=== PATIENT | female | born 1985 | race Caucasian/White ===

== ENCOUNTER 2018-01-27 10:38 | Emergency (ER) | payer OTHER, MEDICAID, SELFPAY ==
[2018-01-27 10:40] VITALS: BP 132/86; PULSE 80; RESP 16; TEMP 36.6; O2SAT 99; BMI 78.7
[2018-01-27] MEDS: Meclizine 12.5 MG Tablet 25 MG PO (11:17)
--- NOTE | 2018-01-27 11:20 | ED.VISSUMM ---
- ER Visit Summary Date of Service: 01/27/18 Chief Complaint: Dizziness History of Present Illness: The patient is a 32 F who presents with dizziness that has been getting worse over the past couple days. Patient went to urgent care today and was referred here to the emergency department. Patient states her dizziness feels like she is unsteady on her feet but also feels like there is a spinning sensation at times. Patient admits to some tinnitus. Patient also admits to a mild headache. Patient states she has had some recent sinus pressure and congestion. Patient states her dizziness is worse with movement and ambulation. Patient denies any paresthesias or weakness. Patient admits to some nausea but denies any vomiting. Physical Examination: Vital signs are stable. Patient is afebrile. Patient is in no acute distress. Oral mucosa is pink and moist. Pupils are equal, round, reactive to light bilaterally. Extraocular muscles are intact. There is some nystagmus noted with right lateral gaze. Cranial nerves II through XII are intact. Strength is 5/5 bilateral. There are no sensory deficits noted. Heart was regular rate and rhythm. Lungs are clear and equal bilaterally. Abdomen is soft and nontender. The remaining physical exam is within normal limits. Test Results: CBC basic metabolic profile were within normal limits. Emergency Department Course and Treatment: Patient was given a dose of meclizine here. Patient felt better after this. Patient was given a prescription for meclizine. Patient was instructed to follow-up with her primary care physician in 7-10 days. Patient understood and was agreeable with the plan. All questions were answered. Disposition: Discharged home Impression: Vertigo, upper respiratory infection This note was generated with [employer] dictation software. It may contain incorrect words, spelling, and punctuation that were not noted in review of the chart prior to signing ED Disposition - Plan for ED Patient: Disposition: Home or Assisted Living Chief Complaint: Dizziness Diagnosis: Vertigo, Upper respiratory infection, viral Instructions: ED Vertigo Unspecified Prescriptions: Meclizine HCl 25 mg PO Q8H PRN PRN #20 tab PRN Reason: Dizziness Referrals: Care Physician,No Primary [NON-STAFF] -
[2018-01-27 11:35] VITALS: BP 102/66; BP 106/74; BP 120/85; PULSE 61; PULSE 72; PULSE 80
[2018-01-27 11:49] LABS: Absolute Neutrophil Count 4.1 X10^3/uL (2.0-7.7); Basophil# 0.03 X10^3/uL; Basophil% 0.5 % (0-1); Eosinophil# 0.07 X10^3/uL; Eosinophils% 1.1 % (0-5); Hematocrit 44.7 % (37-47); Hemoglobin 14.9 g/dl (12.0-15.0); Lymphocyte % 26.8 % (19-41); Mean Corp Hgb Conc 33.3 g/gl (32-36); Mean Corpuscular Volume 87.1 fL (81-99); Mean Platelet Vol. 11.9 fl (6.2-12.0); Monocyte# 0.47 X10^3/uL; Monocyte% 7.4 % (0-10); Neutrophil # 4.06 X10^3/uL (2.7-7.7); POSITIVE COUNT NO; POSITIVE DIFFERENTIAL NO; POSITIVE MORPHOLOGY NO; Platelet Count 137 K/mm3 (150-450); RBC Distribution Width CV 12.5 % (11.6-14.6); RBC Distribution Width SD 40.2 fl (35.1-43.9); Red Blood Count 5.13 M/mm3 (4.2-5.4); White Blood Count 6.3 K/mm3 (4.4-11.0)
[2018-01-27 11:55] LABS: Anion Gap 5 (5-15); BUN 13 mg/dL (7-18); BUN/Creat Ratio 18.3 RATIO (10-20); Calcium,Total 8.6 mg/dL (8.5-10.1); Chloride 108 mmol/L (98-107); Creatinine, Serum 0.71 mg/dL (0.55-1.02); EST Glomerular Filtration Rate 100 mL/min (>60); Est Glom Filt Rate - Afr Amer 121 mL/min (>60); Estimated Creatinine Clearance 125.96 ml/min; Glucose 91 mg/dL (74-106); Potassium 4.8 mmol/L (3.5-5.1); Sodium Level 140 mmol/L (136-145)
--- NOTE | 2018-01-27 11:56 | ED.RN ---
PT REPORTED THAT ANTIVERT IS HELPING AND THE DIZZINESS IS SUBSIDING.
== END 2018-01-27 12:24 | disposition home or self-care (01) ==
PROVIDERS: Emergency Provider Emergency Medicine; Family Provider Nurse Practitioner Family; PCP Nurse Practitioner Family
DX: J06.9 Acute upper respiratory infection, unspecified (principal); R42 Dizziness and giddiness; Z72.0 Tobacco use
CPT/HCPCS: 36415; 80048; 85025; 99283

== ENCOUNTER 2018-12-10 15:10 | Emergency (ER) | payer OTHER, MEDICAID, SELFPAY ==
[2018-12-10 15:12] VITALS: BP 127/81; PULSE 64; RESP 17; TEMP 36.7; O2SAT 97; BMI 38.8
[2018-12-10 17:11] VITALS: RESP 16
--- NOTE | 2018-12-10 17:47 | ED.DCSUM_ITS ---
- ER Visit Summary Date of Service: 12/10/18 Chief Complaint: Right ear pain History of Present Illness: The patient is a 33 F worsening right ear pain over the past month. Saw a urgent care twice. Treated amoxicillin for sinusitis the first time a week ago was given eardrops. Symptoms not improving. Was told the ear drum was sucked in. She does admit to hearing loss. No injuries. No fevers. Never seen ears nose and throat. Physical Examination: General: Alert and oriented ?3, no acute distress HEENT: Normocephalic, atraumatic. Moist mucosa membranes. Tender palpation frontal and maxillary sinuses on the right. TMs normal bilaterally. No fluid behind the ears. Neck: supple, nontender. Cardiovascular: Regular rate and rhythm, no murmurs Respiratory: Normal breath sounds, symmetric, no distress Abdomen: Soft, nontender, nondistended Extremities: Nontender, no edema, pulses intact ?4 Neuro: no focal neurological deficits. Test Results: [] Emergency Department Course and Treatment: Patient vital signs stable, nontoxic. Reports hearing loss in the right. Normal eardrums. She does complain of continued sinus symptoms for the past month. She was placed on Augmentin, she is given follow-up with ENT as an outpatient. Treatment Plan: [] Disposition: Discharge Impression: 1. Sinusitis 2. Right hearing loss This note was generated with [employer] dictation software. It may contain incorrect words, spelling, and punctuation that were not noted in review of the chart prior to signing ED Disposition - Plan for ED Patient: Disposition: Home or Assisted Living Diagnosis: Sinusitis, Hearing loss, right Instructions: ED Sinusitis Abx Tx, Understanding Hearing Loss Prescriptions: Amox/Clavulanate Tablet [Augmentin Tablet] 875 mg PO Q12H #20 tablet Referrals: Radha Martinez NP-C [Primary Care Provider] - Saeid Mitchell MD [STAFF PHYSICIAN] - 5-7 Days
[2018-12-10 18:16] VITALS: RESP 16
[2018-12-10] MEDS: Amox/Clavulanate 875 MG Tablet PO (18:17)
== END 2018-12-10 18:20 | disposition home or self-care (01) ==
PROVIDERS: Emergency Provider Emergency Medicine; Family Provider Nurse Practitioner Family; PCP Nurse Practitioner Family
DX: J32.9 Chronic sinusitis, unspecified (principal); H91.91 Unspecified hearing loss, right ear; Z72.0 Tobacco use
CPT/HCPCS: 99283

== ENCOUNTER 2019-06-22 16:20 | Emergency (ER) | payer OTHER, MEDICAID, SELFPAY ==
[2019-06-22 16:21] VITALS: BP 124/68; PULSE 50; RESP 17; TEMP 36.7; O2SAT 96; BMI 37.0
--- NOTE | 2019-06-22 17:24 | ED.VISSUMM ---
- ER Visit Summary Date of Service: 06/22/19 Chief Complaint: Rash History of Present Illness: The patient is a 33 F who sees Briseida Martinez. She reports that approximately 1 week ago she took her goats into the [place] barefoot. States that the next day she developed rashes to both of her feet that was vesicular initially. It itches badly. Physical Examination: Vitals: Stable. Afebrile. General: Well-nourished and well-developed. Head: Normocephalic atraumatic. Neck: Supple, no lymphadenopathy. No JVD. Nontender. Cardiovascular: Regular rate and rhythm. No murmurs. Respiratory: No respiratory distress. Clear to auscultation bilaterally. Abdominal: Soft, nontender, nondistended, normal bowel sounds. No guarding, rebound, or peritoneal signs. Back: Nontender. Extremities: Multiple scabbed vesicular lesions to her feet bilaterally, back of the right knee, and medial left calf. These are consistent with poison monalisa. No surrounding erythema or induration to suggest infection. No edema. Skin: Normal color, no rash. Neurologic: Alert and oriented ?3. Cranial nerves II through XII are intact. Normal strength and sensation. Psych: Normal affect. Emergency Department Course and Treatment: Patient was treated with a dose of Kenalog IM. She is resting comfortably. Treatment Plan: Patient will be discharged instructions to follow-up with her primary care physician 1 week if not improving. Return to the emergency department for any worsening symptoms. Disposition: To home in improved and stable condition. Impression: 1. Poison monalisa dermatitis. This note was generated with [employer] software. It may contain incorrect words, spelling, and punctuation that were not noted in review of the chart prior to signing ED Disposition - Plan for ED Patient: Disposition: Home or Assisted Living Instructions: Poison Monalisa Dermatitis Referrals: Radha Martinez, PARKER-C [Primary Care Provider] - 1 Week if not improving
[2019-06-22] MEDS: Triamcinolone Acetonide 40 MG/ML Vial 80 MG IM (17:32)
[2019-06-22 17:37] VITALS: BP 121/86; PULSE 51; RESP 18
== END 2019-06-22 18:01 | disposition home or self-care (01) ==
LOC: ED 17:40
PROVIDERS: Emergency Provider Emergency Medicine; Family Provider Nurse Practitioner Family; PCP Nurse Practitioner Family
DX: L23.7 Allergic contact dermatitis due to plants, except food (principal); Z72.0 Tobacco use
CPT/HCPCS: 96372; 99283

== ENCOUNTER 2019-11-02 13:25 | Emergency (ER) | payer OTHER, MEDICAID, SELFPAY ==
[2019-11-02 13:26] VITALS: BP 135/90; PULSE 70; RESP 16; TEMP 36.4; O2SAT 97; BMI 36.9
[2019-11-02] MEDS: HYDROcodone Bitartrate/Apap 5/325 Tablet PO (14:05)
[2019-11-02] MEDS: Naproxen 500 MG Tablet PO (14:05)
--- NOTE | 2019-11-02 14:07 | RAD_ITS ---
STUDY: X-RAY - LUMBAR SPINE REASON FOR EXAM: Female, 33 years old. CHRONIC LOW BACK PAIN RECENTLY ACUTE S/P LIFTING HEAVY OBJECT TECHNIQUE: 3 view(s) of the lumbar spine were obtained. COMPARISON: 10/24/2014 FINDINGS: Normal lumbar lordosis. There is no substantial scoliosis. Spondylolisthesis of L5-S1 as increased since the prior study, currently measuring 9 mm (previously measured 5 mm). Bilateral L5 pars defects are identified. There is multilevel endplate spondylosis of the lumbar vertebrae. There is increasing disc space narrowing at L5-S1 since prior study. Other levels of disc space narrowing less severe. The soft tissue structures are unremarkable. RAD/Lumbar Spine 2 or 3 Views IMPRESSION: 1. Worsening degenerative disc disease and spondylolisthesis (grade 1-grade 2) since 2013. 2. No compression fracture. Electronically Signed: Domingo Robledo MD (Brooks) at 14:32 EST , Service support ,
--- NOTE | 2019-11-02 14:15 | ED.DCSUM_ITS ---
History of Present Illness Chief Complaint: Back Informant: Patient Onset: Days - Back pain for several days. Pain worse after traumatic injury. Context: Gradual Onset, Sudden Onset Timing: Continuous Quality: Pain Location: Lumbar Current Severity: Mild Maximum Severity: Severe Worsened by: Palpation and movement Relieved by: Remaining still Associated Symptoms: No associated symptoms Narrative: Patient is a 33-year-old woman who presents with back pain that started several days ago. Pain pain suddenly worse after blunt trauma. She states her dog jumped on her and she fell onto a pallet. She localizes pain to the lumbar region. Denies bowel bladder dysfunction. Denies saddle paresthesia or anesthesia. She denies foot drop. She denies thigh weakness or buckling of her knees going up or down steps. She denies radicular pain. She denies GI or symptoms. She denies fever, chills or night sweats. She states she is not immune suppressed. She denies IV drug use. Prior similar symptoms: No Recent Illness/Hospitalization: No - Past Medical History (1) No significant past medical history Status: Acute Past Medical History - Allergies and Home Meds Allergies/Adverse Reactions: Allergies No Known Allergies Allergy (Verified 11/02/19 13:26) Primary Care Physician: Radha Martinez NP-C [Primary Care Provider] - Prior records reviewed: Yes Surgical History: noncontributory Lives: Spouse/ Significant Other Smoking Status: Current every day smoker Alcohol: Rare Drugs: None Review of Systems General: Denies: Chills, Fever, Malaise, Sweats Eyes: Denies: Visual changes - bilaterally, Blurred Vision - bilaterally ENT: Denies: Rhinorrhea, Sore throat Cardiovascular: Denies: Chest pain, Palpitations Respiratory: Denies: Dyspnea, Cough, Dyspnea on exertion Gastrointestinal: Denies: Abdominal pain, Nausea, Vomiting, Diarrhea, Melena, Hematochezia Musculoskeletal: Reports: Back pain. Denies: Myalgias, Arthralgias, Neck pain, Swelling, Extremity Pain Skin: Denies: Rash, Wounds Neurological: Denies: Headache, Weakness, Parasthesia, Numbness Hematologic: Denies: Easy bruising, Easy bleeding Physical Exam Vital Signs/Narrative: Vital Signs Temp Pulse Resp BP Pulse Ox 11/02/19 13:26 97.5 F L 70 16 135/90 H 97 Inital Vital Signs reviewed: Yes General: Well nourished, Well developed, No Acute Distress Head: Normocephalic, Atraumatic Eyes: Perrl, EOMI ENT: Moist mucous membranes, No rhinorrhea Neck: Supple, Nontender, No lymphadenopathy, No JVD Cardiovascular: Regular rate, Regular rhythm, No murmurs, Normal S1, Normal S2 Respiratory: No distress, CTA bilaterally, Chest nontender. Negative for: Rales, Rhonchi Abdomen: Soft, Nontender, Nondistended, Normal bowel sounds Back: Normal Inspection, Spinal tenderness - Tenderness over L2-3.. Negative for: Nontender, CVA tenderness Extremities: Nontender, No edema Skin: Normal color, No rash Neurological: Alert, Oriented x3, Cranial nerves II-XII grossly intact, Normal Strength, Normal Sensation, Normal DTR, Normal Gait, - - Straight leg test and crossover test negative. Patella and ankle reflex are 2+ and symmetric. EHL is intact. Patient able to walk on heels and toes. Patient able to do a 1 legged squat right and left. Sensation is intact. Psychological: Normal affect, Normal Mood Diagnostic/Tx/Re-eval Chest X-Ray - ED: Read by ED Physician, - - View x-ray of the LS-spine was obtained. There is minimal arthritic changes noted at L5-S1. There is no fracture, subluxation or dislocation. 11/02/19 14:02 Lumbar Spine 2 or 3 Views [RAD] Stat - Medical Decision Making Because there is history of trauma x-ray was obtained. She was medicated with 500 mg of Naprosyn and one [place] tablet. Differential contusion versus fracture. ED Disposition - Plan for ED Patient: Disposition: Home or Assisted Living Diagnosis: Contusion of lower back and pelvis, initial encounter Instructions: CONTUSION, Back Prescriptions: Naproxen [Naprosyn] 500 mg PO BID #14 tab Transmission Status: Pending to [facility] Referrals: Radha Martinez NP-C [Primary Care Provider] - 1 Week if not improving
== END 2019-11-02 14:29 | disposition home or self-care (01) ==
LOC: ED 14:25
PROVIDERS: Emergency Provider Emergency Medicine; Family Provider Nurse Practitioner Family; PCP Nurse Practitioner Family
DX: S30.0XXA Contusion of lower back and pelvis, initial encounter (principal); W54.1XXA Struck by dog, initial encounter; Y93.9 Activity, unspecified; F17.200 Nicotine dependence, unspecified, uncomplicated
CPT/HCPCS: 72100; 99283

== ENCOUNTER 2019-12-09 09:50 | Emergency (ER) | payer OTHER, MEDICAID, SELFPAY ==
[2019-12-09 09:52] VITALS: BP 128/88; PULSE 68; RESP 16; TEMP 36.5; O2SAT 97; BMI 38.2
--- NOTE | 2019-12-09 10:03 | ED.VIS.GEN ---
History of Present Illness Chief Complaint: Nausea/Vomiting/Diarrhea Informant: Patient Onset: Days - Onset December 05 Context: Sudden Onset Timing: Continuous Quality: Bilateral abdominal pain with nausea, vomiting diarrhea Location: Pain bilaterally Current Severity: Mild Maximum Severity: Severe Worsened by: Vomiting and diarrhea Relieved by: Nothing Associated Symptoms: Thirst, dry mouth and orthostatic symptoms Narrative: She is a 34-year-old woman with history of posttraumatic stress disorder who presents with nausea, vomiting diarrhea that started December 05. She states that there is an outbreak at the [facility]. 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 She states there are 40 kids who have similar symptoms. She denies history of Crohn's disease ulcerative colitis. She denies hematemesis, melena medication. She denies mucus in her stool. She has not been on antibiotics in the past month. She has no known history of renal disease. She states the pain is bilateral. Is aching. She was prescribed Zofran which she discontinued because she is on Lexapro because of concern for QT prolongation. She is taking the Bentyl she was prescribed by the practitioner she saw at the urgent care. Prior similar symptoms: Yes Recent Illness/Hospitalization: Yes - Past Medical History (1) Posttraumatic stress disorder Status: Acute (2) Biliary colic Status: Acute Past Medical History - Allergies and Home Meds Allergies/Adverse Reactions: Allergies No Known Allergies Allergy (Verified 12/09/19 09:52) Primary Care Physician: Radha Martinez NP-C [Primary Care Provider] - Prior records reviewed: Yes Surgical History: noncontributory Lives: Alone Smoking Status: Current every day smoker Alcohol: Rare Drugs: None Review of Systems General: Reports: Malaise. Denies: Chills, Fever, Sweats Eyes: Denies: Visual changes - bilaterally, Blurred Vision - bilaterally ENT: Denies: Rhinorrhea, Sore throat Cardiovascular: Denies: Chest pain, Palpitations Respiratory: Denies: Dyspnea, Cough, Dyspnea on exertion Gastrointestinal: Reports: Abdominal pain, Nausea, Vomiting, Diarrhea. Denies: Constipation, Melena, Hematochezia Genitourinary: Reports: - - Decreased urine output. Denies: Dysuria, Hematuria, Frequency Musculoskeletal: Denies: Back pain, Extremity Pain Skin: Denies: Rash, Wounds Neurological: Denies: Headache, Weakness, Numbness Endocrine: Denies: Polyuria, Polydipsia Physical Exam Vital Signs/Narrative: Vital Signs Temp Pulse Resp BP Pulse Ox 12/09/19 09:52 97.7 F L 68 16 128/88 H 97 Inital Vital Signs reviewed: Yes General: Well nourished, Well developed, Obese, No Acute Distress, - - He does appear ill but not toxic. Head: Normocephalic, Atraumatic Eyes: Perrl, EOMI. Negative for: Pale conjunctiva, Scleral icterus ENT: No rhinorrhea, TM's clear, Dry mucous membranes Neck: Supple, Nontender, No lymphadenopathy, No JVD Cardiovascular: Regular rate, Regular rhythm, No murmurs, Normal S1, Normal S2 Respiratory: No distress, CTA bilaterally, Chest nontender Abdomen: Soft, Nondistended, Tender, Hypoactive bowel sounds. Negative for: Normal bowel sounds, Guarding, Rebound tenderness, Hepatomegaly, Splenomegaly, Mass, Pulsatile mass, Ventral hernia, Umbilical hernia Rectal: Deferred Back: Nontender, Normal Inspection. Negative for: CVA tenderness Extremities: Nontender, No edema Skin: Normal color, No rash, No Trauma. Negative for: Cyanosis, Diaphoresis, Jaundice Neurological: Alert, Oriented x3, Cranial nerves II-XII grossly intact, Normal Strength, Normal Sensation, Normal Gait Psychological: Depressed Diagnostic/Tx/Re-eval Laboratory Results 12/09/19 10:10 Sodium 140 Potassium 4.0 Chloride 109 H Carbon Dioxide 28.0 Anion Gap 3 L BUN 15 Creatinine 0.79 Estim Creat Clear Calc 111.09 Est GFR (MDRD) Af Amer 107 Est GFR (MDRD) Non-Af 88 BUN/Creatinine Ratio 19.0 Glucose 88 Calcium 8.8 - Medical Decision Making Clinically patient appears dehydrated. With history of nausea, vomiting diarrhea for 4+ days and orthostatic symptoms IV was established. She received normal saline wide open. She received 10 mg of Reglan for her nausea and vomiting. She will receive Imodium for the diarrhea. Basic metabolic panel was obtained to assess electrolytes specifically potassium as well as renal function. Informed the patient is having a dystonic reaction. She refuses Benadryl or Cogentin. She states she wants the IV pole. I personally went back to the room. Patient was informed that her symptoms can easily be treated. She states she would like to go home. She wants the IV pole. She was informed that her symptoms may last for 6 to 12 hours. She still does not want to be treated with Benadryl or Cogentin. She requests to go home. ED Disposition - Plan for ED Patient: Disposition: Home or Assisted Living Diagnosis: Abdominal pain, vomiting, and diarrhea, Dehydration Instructions: VOMITING AND DIARRHEA, Nonspecific (Adult) Referrals: Radha Martinez, PLASTIC SURGERY NURSE-C [Primary Care Provider] - 1-2 Days if not improving
[2019-12-09] MEDS: Metoclopramide 10 MG/2 ML Vial IV (10:15)
[2019-12-09] MEDS: 0.9% Normal Saline 1,000 ML 1000 ML IV (10:15)
[2019-12-09 10:31] LABS: Anion Gap 3 (5-15); BUN 15 mg/dL (7-18); Calcium,Total 8.8 mg/dL (8.5-10.1); Chloride 109 mmol/L (98-107); Creatinine, Serum 0.79 mg/dL (0.55-1.02); EST Glomerular Filtration Rate 88 mL/min (>60); Est Glom Filt Rate - Afr Amer 107 mL/min (>60); Estimated Creatinine Clearance 111.09 ml/min; Glucose 88 mg/dL (74-106); Sodium Level 140 mmol/L (136-145)
--- NOTE | 2019-12-09 10:32 | ED.RN ---
RN TO BEDSIDE FOR CALL LIGHT. PATIENT STATES THE IV FLUIDS OF NORMAL SALINE ARE MAKING HER ARM ITCH AND SHE WANTS IT OUT. RN STATES THIS IS A REACTION TO THE REGLAN & RN WILL GET ORDER FROM DR. MCCULLOUGH FOR BENADRYL. RN RETURNS TO ROOM TO INFORM PATIENT OF NEW ORDER. PT STATES I DON'T WANT IT I JUST WANT MY IV OUT AND TO GO HOME. DR. MCCULLOUGH TO BEDSIDE AT THIS TIME TO INFORM PATIENT THAT SIDE EFFECT CAN LAST SEVERAL HOURS & BENADRYL WILL HELP DECREASE IT. PT STILL INSISTING ON REMOVING IV AND GOING HOME. RN REMOVED IV & INFORMED PATIENT WILL RETURN WITH D/C PAPERWORK.
== END 2019-12-09 10:40 | disposition home or self-care (01) ==
PROVIDERS: Emergency Provider Emergency Medicine; PCP Nurse Practitioner Family
DX: R11.2 Nausea with vomiting, unspecified (principal); R10.9 Unspecified abdominal pain; R19.7 Diarrhea, unspecified; E86.0 Dehydration; F17.200 Nicotine dependence, unspecified, uncomplicated
CPT/HCPCS: 80048; 96374; 99283; J7030

== ENCOUNTER 2020-04-06 13:55 | Emergency (ER) | payer OTHER, MEDICAID, SELFPAY ==
[2020-04-06 13:56] VITALS: BP 131/84; PULSE 76; RESP 18; TEMP 36.6; O2SAT 97; BMI 40.1
[2020-04-06 13:59] VITALS: BP 131/84; PULSE 76; RESP 18; TEMP 36.6; O2SAT 97
--- NOTE | 2020-04-06 14:34 | RAD_ITS ---
STUDY: X-RAY - LEFT HAND REASON FOR EXAM: Female, 34 years old. Redness and swelling -- rooster puncture on top of hand, happened 04-04-20 TECHNIQUE: 3 view(s) of the hand. COMPARISON: None. FINDINGS: Normal radiocarpal articulation. Normal distal radioulnar joint. Normal visualized carpal bones. Normal carpal articulations Normal carpometacarpal articulation of the thumb. Normal second through fifth carpometacarpal joints. Normal metacarpi. Normal metacarpophalangeal joint of the thumb. Normal interphalangeal joint of the thumb. Normal proximal and distal phalanges of the thumb. Normal metacarpophalangeal joints of the second through fifth fingers. Normal proximal and distal interphalangeal joints of the second through fifth fingers. Normal phalanges of the second through fifth fingers. Diffuse soft tissue swelling. RAD/Hand Min 3 Views IMPRESSION: Diffuse soft tissue swelling. Electronically Signed: John Coyle, at 15:16 EDT , Service support ,
[2020-04-06] MEDS: Diphth,Pertuss(Acell),Tet Vac 0.5 ML Vial IM (14:56)
--- NOTE | 2020-04-06 16:38 | ED.VIS.UPPEX ---
History of Present Illness Chief Complaint: Cellulitis Narrative: Patient presenting for evaluation secondary to a left hand infection. Patient reports that she was spurred in the left hand by her rooster on Monday. Patient reports that over the course of the last 2 days she has had development of spreading redness and swelling and some pain in the area. She denies any constitutional symptoms such as fever, but she does report that the pain somewhat radiates up to the level of her elbow. Patient reports that her primary care recommended that she come to the emergency department for evaluation. Patient denies any history of diabetes or immunosuppression. Is not allergic to any medications. Review of systems otherwise negative. Past Medical History - Allergies and Home Meds Allergies/Adverse Reactions: Allergies No Known Allergies Allergy (Verified 04/06/20 13:59) Primary Care Physician: Radha Martinez NP-C [Primary Care Provider] - Surgical History: noncontributory Smoking Status: Current every day smoker Review of Systems General: Denies: Fever Respiratory: Denies: Dyspnea Gastrointestinal: Denies: Nausea, Vomiting Musculoskeletal: Reports: Swelling, Extremity Pain Skin: Reports: Wounds Neurological: Denies: Parasthesia Endocrine: Denies: Polyuria, Polydipsia Hematologic: Denies: Easy bruising, Easy bleeding Physical Exam Vital Signs/Narrative: Vital Signs Temp Pulse Resp BP Pulse Ox 04/06/20 13:59 97.8 F 76 18 131/84 H 97 04/06/20 13:56 97.8 F 76 18 131/84 H 97 Left Hand: - - Examination of the patient's left hand shows evidence of a eschar over the midshaft of the second metacarpal almost between the second and third metacarpals. There is edema of the dorsum of the left hand. There is erythema extending approximately to the wrist. Normal range of motion of the fingers. Tenderness palpation in the area. Normal capillary refill normal sensation. General: Well nourished, Well developed Head: Normocephalic, Atraumatic Eyes: EOMI ENT: Moist Mucous Membranes Neck: Full ROM Cardiovascular: Regular rate, Regular rhythm Respiratory: No distress Skin: Normal color, Rash Neurological: Alert, Oriented x3 Psychological: Normal affect Diagnostic/Tx/Re-eval Clinical Impression(s) from Imaging Studies Hand X-Ray 04/06/20 14:34 IMPRESSION: Diffuse soft tissue swelling. Electronically Signed: John Coyle, at 15:16 EDT , Service support , - Medical Decision Making Patient presented secondary to a left hand infection. Radiographs were obtained to rule out bony injury, by my personal interpretation as well as radiology these show no evidence of bony injury, and shows soft tissue swelling. Wound was addressed as noted in the procedure note, and an elliptical incision was taken out around the patient's puncture wound with necrotic tissue removed, and the wound irrigated. Patient will be placed on Augmentin. Tetanus shot was updated in the emergency department. Patient will follow-up with orthopedics, she was given signs and symptoms which to return. She was discharged in stable condition. ED Disposition - Plan for ED Patient: Disposition: Home or Assisted Living Diagnosis: Infection of left hand, Animal bite Instructions: ED Cellulitis Prescriptions: Amox/Clavulanate Tablet [Augmentin Tablet] 875 mg PO Q12H #20 tab Prescription Printed Referrals: Gamal Vaughn DO [STAFF PHYSICIAN] - 2 Days for wound check
[2020-04-06 16:41] VITALS: BP 101/76; PULSE 54; RESP 16; TEMP 36.1; O2SAT 98
== END 2020-04-06 16:51 | disposition home or self-care (01) ==
PROVIDERS: Emergency Provider Emergency Medicine; PCP Nurse Practitioner Family
DX: S61.432A Puncture wound without foreign body of left hand, initial encounter (principal); W64.XXXA Exposure to other animate mechanical forces, initial encounter; Y93.9 Activity, unspecified; Y92.9 Unspecified place or not applicable; L03.114 Cellulitis of left upper limb; F17.200 Nicotine dependence, unspecified, uncomplicated
CPT/HCPCS: 11042; 73130; 90471; 90715; 99284

== ENCOUNTER 2020-05-05 12:27 | Emergency (ER) | payer OTHER, MEDICAID, SELFPAY ==
[2020-05-05 12:28] VITALS: BP 137/94; PULSE 101; RESP 20; TEMP 37.2; O2SAT 98; BMI 39.0
--- NOTE | 2020-05-05 13:01 | RAD_ITS ---
STUDY: X-RAY - RIGHT ANKLE REASON FOR EXAM: Female, 34 years old. LATERAL ASPECT PAIN TO FT/ANKLE. HX TRAUMA TECHNIQUE: 3 view(s) of the ankle. COMPARISON: None. FINDINGS: Normal visualized distal tibia and fibula. Normal medial and lateral malleoli. Normal tibiotalar articulation and ankle mortise. Normal visualized talus and calcaneus. The visualized subtalar, talonavicular, calcaneocuboid and tarsal articulations are normal. The soft tissue structures are unremarkable. RAD/Ankle min 3 Views IMPRESSION: Normal x-ray examination of the ankle. Electronically Signed: John Coyle, at 14:03 EDT , Service support ,
--- NOTE | 2020-05-05 13:01 | RAD_ITS ---
STUDY: X-RAY - RIGHT FOOT CLINICAL: Female, 34 years old. LATERAL ASPECT PAIN TO FT/ANKLE. HX TRAUMA TECHNIQUE: 3 view(s) of the foot. COMPARISON: None. FINDINGS: Normal talus, calcaneus, and tarsal bones. Normal visualized subtalar, talonavicular, calcaneocuboid, tarsal and tarsometatarsal articulations. Normal metatarsi. Normal metatarsophalangeal joint of the great toe. Normal tibial and fibular sesamoid bones. Normal interphalangeal joint of the great toe. Normal phalanges of the great toe. Normal second through fifth metatarsophalangeal joints. Normal interphalangeal joints and phalanges of the lesser toes. Soft tissue swelling. RAD/Foot min 3 Views IMPRESSION: Soft tissue swelling. Electronically Signed: John Coyle, at 14:04 EDT , Service support ,
--- NOTE | 2020-05-05 13:47 | ED.DCSUM_ITS ---
- ER Visit Summary Date of Service: 05/05/20 Chief Complaint: Ankle pain History of Present Illness: The patient is a 34 F who rolled her right ankle prior to arrival. She has pain to her right lateral foot and ankle. No other injuries or complaints. Physical Examination: Right lateral foot and ankle are diffusely tender. No deformity. No skin breaks. Neurovascular intact. Compartments soft. Proximal leg is nontender. Test Results: Ankle and foot x-rays pending. Emergency Department Course and Treatment: Patient was treated with Dubber[place] and an ice pack while awaiting results. X-rays obtained. Preliminary read by me is negative for fracture or dislocation. Oncoming doctor will check the results. If negative, patient will be treated with an Aircast and crutches. Referred to primary care. Rest, ice, elevate. Anti- inflammatories for pain. Treatment Plan: As above Disposition: Discharge Impression: Right foot pain, right ankle pain This note was generated with MiTurn[employer] dictation software. It may contain incorrect words, spelling, and punctuation that were not noted in review of the chart prior to signing ED Disposition - Plan for ED Patient: Referrals: Radha Martinez, PARKER-C [Primary Care Provider] -
[2020-05-05] MEDS: HYDROcodone Bitartrate/Apap 5/325 Tablet PO (13:53)
--- NOTE | 2020-05-05 14:00 | ED.DEP ---
ED Disposition - Plan for ED Patient: Instructions: ED Sprain Ankle W X Ray Prescriptions: Naproxen [Naprosyn] 500 mg PO BID PRN #20 tab Prescription Printed Referrals: Radha Martinez NP-C [Primary Care Provider] -
== END 2020-05-05 14:31 | disposition home or self-care (01) ==
LOC: ED 13:23
PROVIDERS: Emergency Provider Emergency Medicine; PCP Nurse Practitioner Family
DX: M25.571 Pain in right ankle and joints of right foot (principal); M79.671 Pain in right foot; Z72.0 Tobacco use
CPT/HCPCS: 73610; 73630; 99284

== ENCOUNTER 2021-04-26 16:34 | Emergency (ER) | payer MEDICAID, SELFPAY ==
[2021-04-26 16:35] VITALS: BP 131/73; PULSE 76; RESP 18; TEMP 36.6; O2SAT 96; BMI 36.8
--- NOTE | 2021-04-26 17:08 | RAD_ITS ---
INDICATION: CP EXAMINATION/TECHNIQUE: X-RAY - XR Chest 2 Views COMPARISON: None. FINDINGS: The lungs are clear. The cardiomediastinal silhouette is unremarkable. No pleural effusion or pneumothorax. Degenerative changes of the thoracic spine. RAD/Chest PA and Lateral IMPRESSION: No acute radiographic abnormalities. Electronically Signed: Dung Munoz MD at 17:45 EDT Tel , Service support ,
--- NOTE | 2021-04-26 17:11 | EKG12_ITS ---
Test Reason : CP Blood Pressure : / mmHG Vent. Rate : 073 BPM Atrial Rate : 073 BPM P-R Int : 168 ms QRS Dur : 072 ms QT Int : 380 ms P-R-T Axes : 065 006 043 degrees QTc Int : 418 ms Normal sinus rhythm Low voltage QRS Cannot rule out Inferior infarct , age undetermined Cannot rule out Anterior infarct , age undetermined Abnormal ECG Confirmed by WAI OWEN, EVITA ([id number]), fan mail editor LISETTE PANTOJA ([id number]) on 04/28/2021 9:25:42 AM Referred By: Confirmed By:EVITA CARRENO MD
[2021-04-26 18:26] LABS: Absolute Lymphocyte Count 2.16 X10^3/uL (0.83-4.51); Absolute Neutrophil Count 6.3 X10^3/uL (2.0-7.7); Basophil# 0.04 X10^3/uL; Basophil% 0.4 % (0-1); Eosinophil# 0.08 X10^3/uL; Eosinophils% 0.9 % (0-5); Hematocrit 44.8 % (37-47); Hemoglobin 15.1 g/dL (12.0-15.0); Lymphocyte # 2.16 X10^3/ul (0.83-4.51); Lymphocyte % 23.3 % (19-41); Mean Corp Hgb Conc 33.7 g/dL (32-36); Mean Corpuscular Hgb 29.4 pg (27.0-32.0); Mean Corpuscular Volume 87.2 fL (81-99); Mean Platelet Vol. 12.3 fl (6.2-12.0); Monocyte# 0.63 X10^3/uL; Monocyte% 6.8 % (0-10); NRBC Flagged by Analyzer 0 % (0-5); Neutrophil # 6.33 X10^3/uL (2.7-7.7); Neutrophil % 68.3 % (47-70); Platelet Count 180 K/mm3 (150-450); RBC Distribution Width CV 12.9 % (11.6-14.6); Red Blood Count 5.14 M/mm3 (4.2-5.4); White Blood Count 9.3 K/mm3 (4.4-11.0)
[2021-04-26 18:39] VITALS: BP 112/65; PULSE 56; RESP 16; O2SAT 98
--- NOTE | 2021-04-26 18:46 | EX.ED.DYSGE1 ---
HPI History of Present Illness Chief Complaint: Chest Pain Informant: patient Onset/Context/Timing Onset: Weeks Timing: Intermittent and Lasts (Maximum 5 to 10 minutes) Current Severity: Gone Maximum Severity: Moderate Narrative Narrative: Patient presents with 3-week history of increasing frequency of migraines. She also reports left arm tingling and sharp chest pain below the left breast. She states the arm and chest symptoms seem to come on together. Pain will last a maximum of 5 to 10 minutes and then spontaneously resolved. She called her PCP to make an appointment today and she was referred to the emergency room. They will provide close follow-up for her. Patient denies any personal history of cardiac disease. She does have a strong family history. [facility] Medical History Anxiety Depression Home Medications NK 04/26/21 [History Last Taken Unknown] Allergy/AdvReac Type Severity Reaction Status Date / Time No Known Allergies Allergy Verified 04/26/21 16:36 Surgical History History of cholecystectomy Social History Smoking Status: Current every day smoker tobacco type: cigarettes ROS ROS ED Constitutional Constitutional ED: Denies chills or fever(s) Eyes Eyes: Denies change in vision ENT ENT ED: Denies sore throat Cardiovascular Cardiovascular: Reports chest pain Respiratory/Chest Respiratory/Chest: Denies cough or dyspnea Gastrointestinal Gastrointestinal: Denies abdominal pain, diarrhea, nausea or vomiting Genitourinary Genitourinary ED: Denies dysuria Musculoskeletal Musculoskeletal: Denies back pain Integumentary Denies rash Neurologic Neurologic: Reports headache(s) and paresthesias; Denies weakness Psychiatric Psychiatric: Denies anxiety or depression Endocrine Endocrinology: Denies polydipsia or polyuria Allergic/Immunologic Allergic/Immunologic ED: Denies urticaria EXAM Physical Exam Const Vital Signs: 04/26/21 16:35 04/26/21 18:39 04/26/21 19:21 Temperature 98 F Temperature Source Oral Pulse Rate 76 56 L Respiratory Rate 18 16 16 Blood Pressure 131/73 H 112/65 Blood Pressure Mean 92 80 Pulse Ox 96 98 Oxygen Delivery Method Room Air Room Air Positive well nourished and well developed General Appearance ED: well developed HEENT Reports normocephalic and head/scalp atraumatic Eyes PERRL and EOMs intact bilaterally Neck supple Neck Narrative: Left cervical paraspinal muscular tenderness to palpation. Chest Wall inspection of chest normal and palpation of chest normal Resp normal respiratory effort and clear to auscultation bilaterally Cardio regular rate and regular rhythm GI normal to inspection, nondistended, normoactive bowel sounds Palpation: soft Extremity normal to inspection General Extremety ED: Negative for edema General Extremity: Negative for edema Neuro oriented x3 and no sensory deficits noted Sensorium / Orientation: alert Motor Exam: strength 5/5 throughout Psych mental status grossly normal Skin no rashes or lesions noted MDM MDM MDM Narrative Medical decision making narrative: Labs were initiated per nursing protocol. Lab Data Attestation: I reviewed the patient's lab results. Labs: Laboratory Results - last 24 hr 04/26/21 04/26/21 04/26/21 18:19 18:19 19:07 WBC 9.3 RBC 5.14 Hgb 15.1 H Hct 44.8 MCV 87.2 MCH 29.4 MCHC 33.7 RDW Std Deviation 41.0 RDW Coeff of [place] 12.9 Plt Count 180 MPV 12.3 H Immature Gran % (Auto) 0.300 Neut % (Auto) 68.3 Lymph % (Auto) 23.3 [place] % (Auto) 6.8 Eos % (Auto) 0.9 Baso % (Auto) 0.4 Absolute Neuts (auto) 6.3 Absolute Lymphs (auto) 2.16 Nucleated RBC % 0 D-Dimer Quant (PE/DVT) 0.52 H* Sodium 140 Potassium 4.3 Chloride 107 Carbon Dioxide 27.0 Anion Gap 6 BUN 13 Creatinine 0.91 Estim Creat Clear Calc 95.52 Est GFR (MDRD) Af Amer 90 Est GFR (MDRD) Non-Af 74 BUN/Creatinine Ratio 14.3 Glucose 91 Calcium 9.3 Troponin I < 0.015 Radiography Chest X-Ray - ED: 1 View, Read by ED Physician, Normal, Heart, Lungs and Mediastinum Diagnostic Testing: Radiology Impression Chest X-Ray 04/26/21 17:08 IMPRESSION: No acute radiographic abnormalities. Electronically Signed: Dung Munoz MD at 17:45 EDT Tel , Service support , Chest CTA 04/26/21 19:53 IMPRESSION: No acute abnormalities in the chest. Specifically, no evidence of acute pulmonary emboli to the segmental level. Electronically Signed: Dung Munoz MD at 20:29 EDT Tel , Service support , EKG Initial EKG: Attestation: I personally reviewed and interpreted this EKG as follows: Interpretation: Sinus Rhythm (Sinus at 73 with no acute ischemia.) Treatment and Re-Evaluation Comments:: Test results discussed with the patient. Portable chest x-ray per my interpretation reveals no acute findings. Labs including troponin are unremarkable. D-dimer is slightly elevated. CTA of the chest is obtained and shows no evidence of PE or dissection. Test results discussed with the patient and she is reassured with these findings. I did recommend getting Lidoderm patches [id number] to place on her neck and upper back as she does appear to have increased muscle tension in this area potentially leading to pinched nerves. Return instructions are provided. Discharge Plan Triage Chief Complaint: Chest Pain ED Provider: Bryanna Martinez Dx/Rx/DC Orders Clinical Impression: Atypical chest pain Instructions: ED Chest Pain, Noncardiac Prescriptions: No Action NK RF: 0 Primary Care Provider: Radha Martinez NP Referrals: Radha Martinez NP, PROMOTIONS EXECUTIVE PRODUCER-C [Primary Care Provider] - As soon as possible Disposition Disposition: Home, self care
[2021-04-26 18:54] LABS: Anion Gap 6 (5-15); BUN 13 mg/dL (7-18); BUN/Creat Ratio 14.3 RATIO (10-20); Calcium,Total 9.3 mg/dL (8.5-10.1); Chloride 107 mmol/L (98-107); Creatinine, Serum 0.91 mg/dL (0.55-1.02); EST Glomerular Filtration Rate 74 mL/min (>60); Est Glom Filt Rate - Afr Amer 90 mL/min (>60); Estimated Creatinine Clearance 95.52 ml/min; Glucose 91 mg/dL (74-106); Potassium 4.3 mmol/L (3.5-5.1); Sodium Level 140 mmol/L (136-145)
[2021-04-26 19:21] VITALS: RESP 16
[2021-04-26 19:27] LABS: D-Dimer Quantitative (DVT/PE) 0.52 FEU/ug/m (0.27-0.49)
--- NOTE | 2021-04-26 19:53 | CT_ITS ---
INDICATION: cp EXAMINATION: CTA Chest WO/W Contrast Injection TECHNIQUE: Helically acquired images were obtained of the chest following administration of IV contrast. A radiation dose optimization technique was used for this scan. 3D postprocessing images including MIPS were reviewed. IV Contrast dosage and agent: IV 100mL [id number]-370 COMPARISON: None. FINDINGS: Lungs: Unremarkable Mediastinum: The cardiomediastinal silhouette is not enlarged. No mediastinal, hilar or axillary adenopathy. The thoracic aorta is unremarkable. No obvious filling defect seen within the visualized pulmonary arteries. Pleura: Scattered subsegmental atelectasis. Bones/Soft tissues: No suspicious osseous or soft tissue lesions Upper abdomen: No visualized abnormalities in the upper abdomen. CT/CTA Chest W/WO Contrast IMPRESSION: No acute abnormalities in the chest. Specifically, no evidence of acute pulmonary emboli to the segmental level. Electronically Signed: Dung Munoz MD at 20:29 EDT Tel , Service support ,
[2021-04-26 21:19] VITALS: BP 117/87; PULSE 51; RESP 18; O2SAT 99
== END 2021-04-26 21:20 | disposition home or self-care (01) ==
PROVIDERS: Emergency Provider Emergency Medicine; PCP Nurse Practitioner Family
DX: R07.89 Other chest pain (principal); F17.210 Nicotine dependence, cigarettes, uncomplicated
CPT/HCPCS: 71046; 71275; 80048; 84484; 85025; 85379; 93005; 99284; Q9967; A4216

== ENCOUNTER 2023-04-25 09:39 | Emergency (ER) | payer MEDICAID, SELFPAY ==
[2023-04-25 09:41] VITALS: BP 122/80; PULSE 63; RESP 14; TEMP 35.9; O2SAT 98; BMI 37.3
--- NOTE | 2023-04-25 10:28 | EDS_ITS ---
HPI History of Present Illness Chief Complaint: Lower Extremity Injury Narrative Narrative: 37-year-old female presenting with right knee pain. She states been ongoing for about 4 days. She has prescription ibuprofen that she uses 600 mg of for other issues. She states its not really helping that much. She is reports that her knee is catching when she is walking and she describes as locking up. She states she is fallen a couple times and has not injured anything else. She does not think she fell directly on her right knee either. She states it hurts more when she extends it all the way. She can still ambulate although there is some pain elicited with it. [facility] Medical History Anxiety Depression Home Medications NK 04/26/21 [History Last Taken Unknown] Allergy/AdvReac Type Severity Reaction Status Date / Time No Known Allergies Allergy Verified 04/25/23 09:42 Surgical History History of cholecystectomy Social History Smoking Status: Current every day smoker tobacco type: cigarettes ROS ROS ED Constitutional Constitutional ED: Denies chills, fever(s) or sweats Eyes Eyes: Denies blurry vision or change in vision ENT ENT ED: Denies ear pain or sore throat Cardiovascular Cardiovascular: Denies chest pain, palpitations or racing heartbeat Respiratory/Chest Respiratory/Chest: Denies cough, dyspnea or sputum Gastrointestinal Gastrointestinal: Denies abdominal pain, constipation, diarrhea, nausea or vomiting Genitourinary Genitourinary ED: Denies dysuria, hematuria or urinary frequency Musculoskeletal Musculoskeletal: Reports other Details: Right knee pain ; Denies arthralgias, myalgias or neck pain Integumentary Denies abscess, Abrasions or rash Neurologic Neurologic: Denies headache(s), paresthesias or weakness Psychiatric Psychiatric: Denies anxiety, depression, suicidal ideation or suicidal thoughts Endocrine Endocrinology: Denies polydipsia or polyuria EXAM Physical Exam Const Vital Signs: 04/25/23 09:41 Temperature 96.7 F L Temperature Source Temporal Pulse Rate 63 Respiratory Rate 14 Blood Pressure 122/80 H Blood Pressure Mean 94 Pulse Ox 98 Oxygen Delivery Method Room Air Positive well nourished General Appearance ED: NAD HEENT Reports moist mucous membranes normocephalic and atraumatic Resp normal respiratory effort Cardio regular rate and regular rhythm Extremity Extremity Narrative: Tenderness to palpation over the right knee. Mostly on the patella. Extensor mechanism is intact. Full range of motion in flexion and extension although at full extension there is some pain elicited. No edema, erythema. No bruising. No ligamentous laxity. Neuro oriented x3 and CN's II-XII intact bilaterally Motor Exam: strength 5/5 throughout Psych mental status grossly normal MDM MDM MDM Narrative Medical decision making narrative: Patient presenting with right knee pain. Her knee exam is fairly unremarkable with exception of pain elicited when I fully extend it. No evidence of septic knee. We will obtain a right knee x-ray. Patient's knee x-ray on my interpretation shows no acute fracture. There is a lateral patellar tilt noted. Radiologist interprets this and agrees. Patient informed of the findings. She is given follow-up with orthopedics. Return precautions discussed. Impression: 1. Knee pain Lab Data Attestation: I reviewed the patient's lab results. Radiography Diagnostic Testing: Clinical Impression(s) from Imaging Studies Knee X-Ray 04/25/23 10:40 IMPRESSION: Lateral patellar tilt. Electronically Signed: Mayra Martinez MD at 10:59 EDT , Discharge Plan Triage Chief Complaint: Lower Extremity Injury ED Provider: Migel Syed Dx/Rx/DC Orders Instructions: Knee Pain Prescriptions: No Action NK Primary Care Provider: Radha Martinez NP Referrals: Radha Martinez NP, TUNNEL DRIER OPERATOR-C [Primary Care Provider] - Disposition Disposition: Home, Self Care
--- NOTE | 2023-04-25 10:40 | RAD_ITS ---
INDICATION: pain EXAMINATION/TECHNIQUE: X-RAY - RIGHT XR Knee Complete 4 Views or More 4 VIEWS COMPARISON: FINDINGS: SOFT TISSUES: No soft tissue swelling or gas. No radiopaque foreign body. BONES/JOINTS: No acute fracture or subluxation.. Normal alignment. There is lateral patellar tilt. No sclerotic or destructive changes observed. RAD/Knee 4 or More Views IMPRESSION: Lateral patellar tilt. Electronically Signed: Mayra Martinez MD at 10:59 EDT ,
[2023-04-25 11:35] VITALS: BP 125/76; PULSE 68; RESP 15; O2SAT 98
== END 2023-04-25 11:45 | disposition home or self-care (01) ==
PROVIDERS: Emergency Provider Student in an Organized Health Care Education/Training Program; PCP Nurse Practitioner Family; Visit Provider Student in an Organized Health Care Education/Training Program
DX: M25.561 Pain in right knee (principal); F17.210 Nicotine dependence, cigarettes, uncomplicated
CPT/HCPCS: 73564; 99282

== ENCOUNTER → 2023-05-04 | Outpatient (CLI) | payer MEDICAID, SELFPAY ==
--- NOTE | 2023-05-04 07:14 | MRI_ITS ---
STUDY: MRI RIGHT KNEE REASON FOR EXAM: Female, 37 years old. Medial knee pain after feeling a pop. Instability. TECHNIQUE: Standardized fat and water weighted pulse sequences were obtained in all 3 orthogonal planes. COMPARISON: Knee x-rays dated April 25, 2023. FINDINGS: Normal medial meniscus. Mild thinning of the articular cartilage of the medial femorotibial compartment with minimal reactive subchondral bone marrow edema (coronal series 7 images 12-20). MCL sprain with periligamentous edema without discontinuity (coronal series 7 image 15). Normal distal semimembranosus, gracilis and semitendinosus tendons. Normal lateral meniscus. Mild thinning of the articular cartilage of the lateral femorotibial compartment (coronal series 7 images 12-17). Normal lateral femoral condyle and tibial plateau. Normal proximal tibiofibular articulation. Normal lateral collateral (fibular) ligament. Normal popliteus tendon. Normal biceps femoris tendon. Normal anterior cruciate ligament (ACL). Normal posterior cruciate ligament (PCL). Normal congruent patellofemoral articulation. Minimal surface irregularity of the articular cartilage of the lateral patellar facet (axial series 3 images 8-11). Normal medial and lateral patellar retinaculum. Normal quadriceps tendon. Normal patellar tendon. Normal Hoffa''s fat pad. Deep infrapatellar bursitis (sagittal series 5 image 14). Moderate-sized joint effusion with plicae medially, laterally and in the suprapatellar fossa (axial series 3 images 1-13). Prepatellar subcutaneous soft tissue edema (sagittal series 5 image 13). The otherwise visualized osseous structures are unremarkable. MRI/Lower Ext Joint Only (Routine) IMPRESSION: Mild arthrosis of the medial femorotibial compartment. MCL sprain. Mild arthrosis of the lateral femorotibial compartment. Surface irregularity of the articular cartilage of the lateral patellar facet. Deep infrapatellar bursitis. Prepatellar subcutaneous soft tissue edema. Moderate-sized joint effusion with multiple plicae. Electronically Signed: Dm Turner MD at 10:05 EDT ,
== END | disposition home or self-care (01) ==
LOC: MRI 07:08
PROVIDERS: PCP Nurse Practitioner Family; Referring Provider Physician Assistant; Visit Provider Physician Assistant
DX: M23.91 Unspecified internal derangement of right knee (principal); X58.XXXA Exposure to other specified factors, initial encounter
CPT/HCPCS: 73721

== ENCOUNTER → 2023-07-13 | Outpatient (CLI) | payer MEDICAID, SELFPAY ==
[2023-07-13 12:08] LABS: Hemoglobin 15.6 g/dL (12.0-15.0); Mean Corp Hgb Conc 34.7 g/dL (32-36); Mean Corpuscular Hgb 30.1 pg (27.0-32.0); Mean Corpuscular Volume 86.9 fL (81-99); Platelet Count 148 K/mm3 (150-450); RBC Distribution Width CV 12.5 % (11.6-14.6); RBC Distribution Width SD 39.8 fl (35.1-43.9); Red Blood Count 5.18 M/mm3 (4.2-5.4)
== END | disposition home or self-care (01) ==
LOC: LAB 11:29
PROVIDERS: PCP Nurse Practitioner Family; Referring Provider Nurse Practitioner Family; Visit Provider Nurse Practitioner Family
DX: D69.6 Thrombocytopenia, unspecified (principal)
CPT/HCPCS: 36415; 85027

== ENCOUNTER 2023-07-19 16:00 | Outpatient (RCR) | payer MEDICAID, SELFPAY ==
--- NOTE | 2023-05-23 11:48 | HP.PTEVAL_ITS ---
Patient's Visit Information Visit Information Visit Information: LISETTE WHITAKER is a 37 year old F referred to Physical Therapy by NICHOLAS Solitario with a diagnosis of Right Knee. Date of Evaluation: 05/23/23 Physical Therapist: Kavita Cardoso DPT Visit Plan Frequency: 2x /Week Duration: 4 Weeks Plan: Aquatic therapy- focus on LE and core strength/stabilization- functional mobility and squatting mechanics Subjective Subjective: About a month she started having issues with her right knee- it was popping and it would shift or pop and it would give out and she would go down or could not put weight on it. She went to ortho-he did an MRI (Mild arthrosis of the medial femorotibial compartment, MCL sprain. Mild arthrosis of the lateral femorotibial compartment. Surface irregularity of the articular cartilage of the lateral patellar facet. Deep infrapatellar bursitis. Prepatellar subcutaneous soft tissue edema. Moderate-sized joint effusion with multiple plicae). He did not do an injection but did give her a brace and anti-inflam and sent her to PT. She has been using the brace, limited squatting and using the Meloxicam and she feels that she is back to 100% without squatting and only 30% without squatting. When squatting she can do it but it bothers her. Work: [employer]. Pain is located in the medial side of the knee and does radiate to the posterior knee- does radiate both to the hip and to the ankle. Describes the pain as achy. Worst: 7/10 Agg: squatting, up/down stairs, inclines. Eases: rest Best: 0/10. She does have other issues- her back bothers her a lot- she sees her PCP for her back but does not go to therapy for her spine- no chiro or massage therapy. She wears the brace when she is at work and more active- but has not needed it the past 3 days. She has had no knee pain for about a week. No N/T in the toes. She can do the stairs at home without issues- she pushes and does them recip. Sleep: not disturbed. PMHx/Meds: no changes since ortho Objective Objective: Objective: Posture: FH, RS- can correct with verbal cues but does not maintain Gait: slightly antalgic- decreased stance time on the right LE with toes turned out to the side HR/TR: able without UE A SLS: 3-5 seconds but reports feeling unstable Palpation: tender along medial joint line Sensation: WFL to gross touch bilateral ROM: 5 degrees from full extension to 120 degrees of flexion- hesitant and does have some clicking with full knee flexion then extension Strength: Ankle: 5/5, Knee: 4+/5, Hip: 4/5, Core: fair minus Flex: HS: mod, Gastroc: mod Squat: weight shift to the left and hesitant Stairs: asc/desc 8 recip with no HR- dec control with descent Special Tests R Hip KAREN - Intraarticular Pathology: Negative R Hip FADDIR - Labrum: Negative R Hip Impingement Provocation - Labrum: Negative R Hip Trendelenberg - Glut Medius: Positive R Knee Chet - Meniscus: Positive R Knee Valgus - MCL: Positive R Knee Varus - LCL: Positive R Knee Patellar Grind - PFS: Positive Goals Goal 1:: Patient will be I with HEP and progression Goal Time Frame: 4-6 Weeks Goal 2:: Patient will squat with normal mechanics Goal Time Frame: 4-6 Weeks Goal 3:: Patient will report 80% improvement and back to all normal ADL's/work related tasks Goal Time Frame: 4-6 Weeks Goal 4:: Patient will maintain proper posture t/o tx session to demo increased core s/s Goal Time Frame: 4-6 Weeks Rehabilitation Potential Physical Therapy Diagnosis: Patient presents with hypomobility- she has decreased LE and core strength/stabilization, flex, ROM and muscular endurance leading to increased pain and decreased ability to perform ADL's. Rehabilitation Potential: Good Anticipated Interventions Patient/Client Instruction: Educate patient on: Benefits of Fitness Program Therapeutic Exercise to Include: Strength training, Endurance training, Balance training, Coordination, Agility training, Body mechanics, Postural training, Flexibilty training, Gait and locomotor training, Neuromotor development, In an aquatic setting, Passive ROM, Active ROM, Dynamic Lumbar Stabilization and Scapular Strength/Stabilization For the Purpose of:: To improve muscle performance and motor function Text: Thank you for the opportunity to evaluate your patient. For Medicare and Medicare HMO plans, please review the plan of care and approve it. It will need to be FAXED BACK to us at [phone] for Medicare purposes. For Medicare only, by signing this I certify the plan of care. Please let me know if there are questions or concerns regarding this plan of care. Physician Signature: Date:
--- NOTE | 2023-06-22 14:27 | HP.PTREVAL ---
Re-Evaluation Intro: NICHOLAS Solitario, It has been my pleasure to treat LISETTE WHITAKER over the last 8 visits for Right Knee. Please see the progress note below for an update on the physical therapy plan of care! Subjective Subjective: She did some steps yesterday and knee is a little sore today. She feels that going up steps and squatting causes pain and hard to get back up and this is something she has to do at work. She wants to continue for another 4 weeks. Objective Objective/Function: Squat to get something off the floor...pt demonstrates good squating mechanics when picking an object up off the floor... she does so with slight heistation Stairs: up and down recip with 1 hand rails but pt struggles to ascend with the R LE and uses the hand rail a little more using the R leg. Plan Plan Plan: Pt approved for 48 units - 14 units used for AT as of 06/20 Continue 2X/ week for 4 additional weeks for Aquatic therapy- focus on LE and core strength/stabilization- functional mobility and squatting mechanics Balance/Gait/Functional tests Balance/Special Test Scores Lower Extremity Functional Score: 49 Goals Goals Goal 1:: Patient will be I with HEP and progression Goal Time Frame: 4-6 Weeks Goal Progress: Goal Met Goal 2:: Patient will squat with normal mechanics Goal Time Frame: 4-6 Weeks Goal Progress: Progressing Goal 3:: Patient will report 80% improvement and back to all normal ADL's/work related tasks Goal Time Frame: 4-6 Weeks Goal Progress: Progressing Goal 4:: Patient will maintain proper posture t/o tx session to demo increased core s/s Goal Time Frame: 4-6 Weeks Goal Progress: Progressing Anticipated Interventions Anticipated Interventions Patient/Client Instruction: Educate patient on: Benefits of Fitness Program Therapeutic Exercise to Include: Strength training, Endurance training, Balance training, Coordination, Agility training, Body mechanics, Postural training, Flexibilty training, Gait and locomotor training, Neuromotor development, In an aquatic setting, Passive ROM, Active ROM, Dynamic Lumbar Stabilization and Scapular Strength/Stabilization For the Purpose of:: To improve muscle performance and motor function Re-Evaluation Ending Re-evaluation ending: Please do not hesitate to contact me at [phone] by phone or if you have questions or concerns regarding this new plan of care! Sincerely, Paige Terrell, MPT
--- NOTE | 2023-07-19 16:16 | HP.PTDCSUM ---
Discharge Summary D/C summary: It has been my pleasure to treat LISETTE WHITAKER referred by NICHOLAS Solitario, with the diagnosis of Right Knee for a total of 14 visit(s). Discharge Date: Please see the following information for a summary of their discharge status. Subjective Subjective: Patient reports that she is a lot better- she is able to do almost all of her normal ADL's- she still has a little bit of issues with squatting and going up/down stairs sometimes but not always- more than 3 flights. She has figured out ways around it. She feels that she can keep doing the exercises indep. Does have some clicking and popping but not the catching like it was before. Pain RLE: Pain Intensity (Out of 10): 4 Overall Improvement % Improvement: 90 Objective Objective/Function: Posture: good throughout Gait: no deviation noted HR/TR: able without UE A SLS: 30 sec without UE A Palpation: not tender to touch Sensation: WFL to gross touch bilateral ROM: full extension to 120 degrees of flexion Strength: Ankle: 5/5, Knee: 5/5, Hip: 4+/5, Core: fair plus Flex: HS: mod, Gastroc: mod Squat: good- no weight shift Stairs: asc/desc 8 recip without HR- good control Goals Goal 1:: Patient will be I with HEP and progression Goal Progress: Goal Met Goal 2:: Patient will squat with normal mechanics Goal Progress: Goal Met Goal 3:: Patient will report 80% improvement and back to all normal ADL's/work related tasks Goal Progress: Goal Met Goal 4:: Patient will maintain proper posture t/o tx session to demo increased core s/s Goal Progress: Goal Met Plan Plan: 07/19/23: Discharge to I HEP- educate on no deep knee bending Continue 2X/ week for 4 additional weeks for Aquatic therapy- focus on LE and core strength/stabilization- functional mobility and squatting mechanics D/C Information d/c sentence: If there are questions or concerns regarding this patient's physical therapy, please feel free to call me at [phone]. Thank you for the referral of this patient. Sincerely, Kavita Cardoso, DPT Balance/Gait/Functional tests Balance/Special Test Scores Lower Extremity Functional Score: 59 Improvement % Improvement: 90
== END 2023-07-19 19:00 | disposition home or self-care (01) ==
LOC: PT 16:00
PROVIDERS: PCP Nurse Practitioner Family; Referring Provider Physician Assistant; Visit Provider Physician Assistant
DX: M23.91 Unspecified internal derangement of right knee (principal); M22.2X1 Patellofemoral disorders, right knee
CPT/HCPCS: 97113; 97162; 97164

== ENCOUNTER → 2023-08-28 | Outpatient (CLI) | payer MEDICAID, SELFPAY ==
--- NOTE | 2023-08-28 12:35 | RAD_ITS ---
STUDY: X-RAY CHEST REASON FOR EXAM: Female, 37 years old. Bronchitis. TECHNIQUE: Frontal and lateral views of the chest. COMPARISON: April 26, 2021. FINDINGS: The lungs are clear and expanded. There is no demonstrated pleural abnormality. Normal size heart. Normal mediastinum and tori. Normal visualized pulmonary arteries. Normal visualized aortic arch and descending thoracic aorta. Normal visualized thoracic spine. Normal visualized ribs, clavicles, and shoulders. No abnormality of the visualized soft tissue structures of the upper abdomen. RAD/Chest PA and Lateral IMPRESSION: No interval change. Normal chest. Electronically Signed: Dm Turner MD at 14:50 EDT ,
[2023-08-28 13:06] LABS: Hematocrit 45.5 % (37-47); Hemoglobin 14.9 g/dL (12.0-15.0); Mean Corp Hgb Conc 32.7 g/dL (32-36); Mean Corpuscular Hgb 29.2 pg (27.0-32.0); Mean Corpuscular Volume 89.2 fL (81-99); Platelet Count 182 K/mm3 (150-450); RBC Distribution Width CV 13.1 % (11.6-14.6); RBC Distribution Width SD 42.5 fl (35.1-43.9)
[2023-08-28 13:29] LABS: AST(SGOT) 9 U/L (15-37); Alanine Aminotransfer ALT/SGPT 24 U/L (13-56); Albumin, Serum 3.6 g/dL (3.2-5.0); Alkaline Phosphatase 65 U/L (45-117); Anion Gap 4 (5-15); BUN 19 mg/dL (7-18); BUN/Creat Ratio 24.6 RATIO (10-20); Chloride 108 mmol/L (98-107); Cholesterol 151 mg/dL (200); Creatinine, Serum 0.77 mg/dL (0.55-1.02); EST Glomerular Filtration Rate 88 mL/min (>60); Est Glom Filt Rate - Afr Amer 107 mL/min (>60); Globulin 3.5 g/dL (2.2-4.2); Glucose 92 mg/dL (74-106); High Density Lipoprotein 43 mg/dL; Potassium 3.8 mmol/L (3.5-5.1); Protein, Total 7.1 g/dL (6.4-8.2); Sodium Level 142 mmol/L (136-145); Triglycerides 158 mg/dL; Very Low Density Lipoprotein 32 mg/dL (5-40)
== END | disposition home or self-care (01) ==
LOC: LAB 12:23
PROVIDERS: PCP Nurse Practitioner Family; Referring Provider Nurse Practitioner Family; Visit Provider Nurse Practitioner Family
DX: D69.6 Thrombocytopenia, unspecified (principal); R42 Dizziness and giddiness; E66.9 Obesity, unspecified; K21.9 Gastro-esophageal reflux disease without esophagitis; E55.9 Vitamin D deficiency, unspecified; Z13.220 Encounter for screening for lipoid disorders
CPT/HCPCS: 36415; 71046; 80053; 80061; 82306; 85027

== ENCOUNTER → 2023-09-05 | Outpatient (CLI) | payer MEDICAID, SELFPAY ==
--- NOTE | 2023-09-05 13:05 | EKG12_ITS ---
Test Reason : DIZZY & GIDDY Blood Pressure : / mmHG Vent. Rate : 060 BPM Atrial Rate : 060 BPM P-R Int : 176 ms QRS Dur : 072 ms QT Int : 422 ms P-R-T Axes : 051 -07 016 degrees QTc Int : 422 ms Normal sinus rhythm Normal ECG Confirmed by ROGELIO OWEN, CHANI ([id number]), digital editor KETLON CARTER ([id number]) on 09/06/2023 6:55:07 AM Referred By: Radha Martinez Confirmed By:CHANI MERCADO MD
== END | disposition home or self-care (01) ==
LOC: PSN 13:04
PROVIDERS: PCP Nurse Practitioner Family; Referring Provider Nurse Practitioner Family; Visit Provider Nurse Practitioner Family
DX: R42 Dizziness and giddiness (principal)
CPT/HCPCS: 93005; 93225; 93226

== ENCOUNTER 2024-05-30 14:13 | Emergency (ER) | payer MEDICAID, SELFPAY ==
[2024-05-30 14:14] VITALS: BP 153/95; PULSE 78; RESP 16; TEMP 36.4; O2SAT 95; BMI 38.8
--- NOTE | 2024-05-30 15:41 | CT_ITS ---
STUDY: CT ABDOMEN AND PELVIS WITH CONTRAST REASON FOR EXAM: Female, 38 years old. rectal pain RADIATION DOSAGE (If Supplied By Facility): CTDIvol = ( 20.38 ) mGy, DLP = ( 1398.89 ) mGycm TECHNIQUE: Transaxial images were obtained from the dome of the diaphragm to the symphysis pubis without oral contrast. IV 100mL Isovue-370 was administered. Sagittal and coronal images were reconstructed. Individualized dose optimization techniques were used for this CT. COMPARISON: None. FINDINGS: The visualized lung bases are unremarkable. The visualized portions of the heart are within normal limits. Mild nonspecific fatty infiltrated liver without mass or bile duct dilatation.. Gallbladder not visualized which may be consistent with prior cholecystectomy.. Normal spleen. Normal pancreas. Normal bilateral adrenal glands. Normal right kidney. Normal left kidney. Normal visualized stomach. Normal small intestine. Normal colon. No evidence for acute appendicitis. There is thickening of the quezada of the anus and anorectal junction which is nonspecific in etiology. Normal abdominal aorta. Normal inferior vena cava. Normal retroperitoneum. Poorly distended thick walled bladder likely of no significance. Normal abdominal wall. Lumbar spine demonstrates mild degenerative change. Grade 1 spondylolisthesis at L5-S1 CT/Abdomen/Pelvis W IV Cont ONLY IMPRESSION: Mild nonspecific thickening of the quezada of the anus and anorectal junction possibly inflammatory. Hemorrhoids may create similar appearance. Possibility of neoplasm also not entirely excluded. Clinical correlation recommended. Electronically Signed: Caden Marcial MD at 17:23 EDT ,
[2024-05-30] MEDS: 0.9% Normal Saline (1000mL) 1,000 ML 999 ML IV (15:50)
[2024-05-30] MEDS: Ketorolac 15 MG/ML Vial IV (15:51)
--- NOTE | 2024-05-30 15:57 | EX.ED.DYSGE1 ---
HPI <GINA Porter - Last Filed: 05/30/24 17:58> History of Present Illness Chief Complaint: Other, Pain/Inj Narrative Narrative: Patient is a 38-year-old female with history of anxiety, depression, obesity who presents to the emergency department with complaints of rectal pain. Patient states she has been having intermittent rectal pain over the last 2 weeks. Patient states today has been unrelenting and severe. She states that her stools have been different. She did have some dark blood 1 time. She denies any history of hemorrhoids. She states has been using [id number] creams are not helping. PFSH <GINA Porter - Last Filed: 05/30/24 17:58> PFSH Medical History Anxiety Depression Home Medications ?Medication ?Instructions ?Recorded ?Last Taken ?Type cetirizine 10 mg tablet 10 mg PO DAILY PRN 04/28/23 Unknown History cyclobenzaprine 10 mg tablet 10 mg PO TID PRN muscle spasm 04/28/23 Unknown History escitalopram oxalate 10 mg tablet 10 mg PO DAILY 04/28/23 Unknown History (Lexapro) ibuprofen 600 mg tablet 600 mg PO Q8H PRN 04/28/23 Unknown History omeprazole 10 mg capsule,delayed 10 mg PO DAILY 04/28/23 Unknown History release meloxicam 15 mg tablet 15 mg PO DAILY #30 tabs 05/10/23 Unknown Rx dicyclomine 20 mg tablet 20 mg PO TID #30 tabs 05/30/24 Unknown Rx docusate sodium 100 mg capsule 100 mg PO BID #60 caps 05/30/24 Unknown Rx (Colace) hydrocortisone 1 %-pramoxine 1 % 1 applic MT DAILY #10 grams 05/30/24 Unknown Rx rectal foam (Proctofoam HC) Allergy/AdvReac Type Severity Reaction Status Date / Time No Known Allergies Allergy Verified 05/30/24 14:15 Surgical History History of cholecystectomy Social History Smoking Status: Current every day smoker tobacco type: cigarettes ROS <GINA Porter - Last Filed: 05/30/24 17:58> ROS ED ROS Narrative Constitutional: Negative for fever, chills, weight loss, weakness Eyes: Negative for vision loss, vision change, double vision ENT: Negative for any sore throat, ear pain, congestion Cardiovascular: Negative for any chest pain, tightness, palpitations Respiratory: Negative for any cough, sputum production, hemoptysis, dyspnea, dyspnea on exertion, orthopnea Gastrointestinal: Negative for any nausea, vomiting, diarrhea, blood in vomit. Positive for abdominal pain, constipation, rectal pain : Negative for any urinary frequency, dysuria, retention, blood in urine Muscle skeletal: Negative for any neck pain, back pain Neurological: Negative for any headache, syncope, dizziness Skin: Negative for any rashes, itching, abrasions, lacerations Psychiatric: Negative for any depression, anxiety, stress, suicidal ideation, homicidal ideation Hematologic: Negative for any excessive bruising, easy bleeding EXAM <GINA Porter - Last Filed: 05/30/24 17:58> Physical Exam Narrative Exam Narrative: Vital signs reviewed. HEET: Head normocephalic atraumatic, TMs clear bilaterally. Posterior pharynx is clear, moist mucous membranes. Nares clear bilaterally. Neck: Supple with no lymphadenopathy or tenderness. No signs of meningismus. Cardiac: Regular rate and rhythm no murmurs gallops or rubs, equal peripheral pulses bilaterally. Respiratory: Lungs clear to auscultation bilaterally. No chest tenderness. Abdomen: Soft, nontender, nondistended. No abdominal bruit or pulsatile masses. No hepatosplenomegaly Extremities: No peripheral edema, no signs of gross trauma or deformity. Active full range of motion of all extremities. Neuro: Cranial nerves II through XII intact, no focal neurological deficits. Skin: Clean dry and intact with no rash, purpura, petechiae, vesicles or pustules. Backs/flank: No CVA tenderness, no midline spinal tenderness, no deformity. Psych: Normal mood and affect. No SI, HI or acute psychosis. Rectal rectal exam was completed with female nurse fresh work wrapper layer nurse Silva. External anus was normal. There is no dried blood or fresh blood. There is minimal stool in the rectal vault, no dark tarry stool, brown in nature. Const Vital Signs: 05/30/24 14:14 05/30/24 15:33 05/30/24 16:13 Temperature 97.6 F L Temperature Source Temporal Pulse Rate 78 55 L Respiratory Rate 16 16 Respiratory Pattern Normal Blood Pressure 153/95 H 127/73 H Blood Pressure Mean 114 91 Pulse Ox 95 99 Oxygen Delivery Method Room Air Room Air <Dr. Cornelio Rose MD - Last Filed: 05/31/24 00:57> Physical Exam Const Vital Signs: 05/30/24 14:14 05/30/24 15:33 05/30/24 16:13 Temperature 97.6 F L Temperature Source Temporal Pulse Rate 78 55 L Respiratory Rate 16 16 Respiratory Pattern Normal Blood Pressure 153/95 H 127/73 H Blood Pressure Mean 114 91 Pulse Ox 95 99 Oxygen Delivery Method Room Air Room Air MDM <GINA Porter - Last Filed: 05/30/24 17:58> [facility] Lab Data Labs: Laboratory Results - last 24 hr 05/30/24 15:50 WBC 7.7 RBC 4.79 Hgb 14.0 Hct 41.1 MCV 85.8 MCH 29.2 MCHC 34.1 RDW Std Deviation 40.1 RDW Coeff of Juarez 13.0 Plt Count 141 L MPV 12.0 Immature Gran % (Auto) 0.300 Neut % (Auto) 61.6 Lymph % (Auto) 28.1 Murray % (Auto) 6.8 Eos % (Auto) 2.3 Baso % (Auto) 0.9 Absolute Neuts (auto) 4.7 Absolute Lymphs (auto) 2.15 Nucleated RBC % 0 Sodium 140 Potassium 4.3 Chloride 109 H Carbon Dioxide 28.0 Anion Gap 3 L BUN 11 Creatinine 0.81 Estim Creat Clear Calc 136.97 Est GFR (MDRD) Af Amer 101 Est GFR (MDRD) Non-Af 84 BUN/Creatinine Ratio 13.6 Glucose 85 Calcium 9.1 Total Bilirubin 0.50 AST 16 ALT 26 Alkaline Phosphatase 59 Total Protein 6.5 Albumin 3.4 Globulin 3.1 Albumin/Globulin Ratio 1.1 Lipase 37 Radiography Diagnostic Testing: Clinical Impression(s) from Imaging Studies Abdomen/Pelvis CT 05/30/24 15:41 IMPRESSION: Mild nonspecific thickening of the quezada of the anus and anorectal junction possibly inflammatory. Hemorrhoids may create similar appearance. Possibility of neoplasm also not entirely excluded. Clinical correlation recommended. Electronically Signed: Caden Marcial MD at 17:23 EDT Reading Location ID and State: [address] [place] [address] Tel , Service support , Treatment and Re-Evaluation :: Patient appears to be in no obvious distress vital signs are stable, patient appears nontoxic. Presenting to the emerged part with rectal pain, abdominal pain. Patient received a full abdominal workup including CBC CMP lipase, CT scan of the abdomen pelvis. IV fluids, Toradol will be given. Rectal exam was grossly unremarkable. All radiologic examinations were read, reviewed by the emergency department attending. From these reads, a plan of care will be put in place. Patient's laboratory values showed normal CBC, patient's chemistries were unremarkable, lipase was negative. Patient's stool occult blood was negative for blood. Patient CT scan of the abdomen pelvis shows none specific thickening of the quezada of the anus and anal rectal junction possibly inflammatory. Hemorrhoids may create similar appearance. Possible of neoplasm also not entirely excluded. Secondary to this finding, I did reach out to surgery, I spoke with Dr. Roth. Patient will be able to be seen outpatient. Patient will be given Proctofoam with applicator, as well as Bentyl and Colace. She is instructed to maintain her sitz bath, and to follow-up outpatient. Given strict return precaution. Stable for discharge. <Dr. Cornelio Rose MD - Last Filed: 05/31/24 00:57> [facility] MDM Narrative Medical decision making narrative: I have personally performed a face to face assessment of the patient and have reviewed the JACY Note. I performed a substantive portion of the visit including all aspects of the following. My vizcaino findings include: History: weeks-a month of abdominal pain that is often in the right lower quadrant and progressively getting worse. It is off-and-on. At times she is having sharp pains radiating into her rectum. These are random and usually associated with abdominal pains. She is been having diarrhea for 2 weeks, started getting bloody today. She denies a history of abdominal surgery. No history of inflammatory bowel in the family that she knows of but she states she does not keep in close contact with most of her family members that she does not know. Exam is obese. Abdomen mildly tender right lower quadrant no guarding or rebound otherwise benign abdomen. Good bowel sounds. No distress. Heart regular lungs clear, no tachycardia. Rectal exam per HOTEL BAGGAGE HANDLER. Medical Decison Making differential includes inflammatory bowel disease other types of inflammatory colitis, diverticulitis, less likely appendicitis. Will obtain CT and labs, the rectal pain sounds like it is referred pain. She may need referral to GI and possible scope to get a definitive diagnosis. Other additions or changes: [None] Lab Data Labs: Laboratory Results - last 24 hr 05/30/24 15:50 WBC 7.7 RBC 4.79 Hgb 14.0 Hct 41.1 MCV 85.8 MCH 29.2 MCHC 34.1 RDW Std Deviation 40.1 RDW Coeff of Juarez 13.0 Plt Count 141 L MPV 12.0 Immature Gran % (Auto) 0.300 Neut % (Auto) 61.6 Lymph % (Auto) 28.1 Murray % (Auto) 6.8 Eos % (Auto) 2.3 Baso % (Auto) 0.9 Absolute Neuts (auto) 4.7 Absolute Lymphs (auto) 2.15 Nucleated RBC % 0 Sodium 140 Potassium 4.3 Chloride 109 H Carbon Dioxide 28.0 Anion Gap 3 L BUN 11 Creatinine 0.81 Estim Creat Clear Calc 136.97 Est GFR (MDRD) Af Amer 101 Est GFR (MDRD) Non-Af 84 BUN/Creatinine Ratio 13.6 Glucose 85 Calcium 9.1 Total Bilirubin 0.50 AST 16 ALT 26 Alkaline Phosphatase 59 Total Protein 6.5 Albumin 3.4 Globulin 3.1 Albumin/Globulin Ratio 1.1 Lipase 37 Radiography Diagnostic Testing: Clinical Impression(s) from Imaging Studies Abdomen/Pelvis CT 05/30/24 15:41 IMPRESSION: Mild nonspecific thickening of the quezada of the anus and anorectal junction possibly inflammatory. Hemorrhoids may create similar appearance. Possibility of neoplasm also not entirely excluded. Clinical correlation recommended. Electronically Signed: Caden Marcial MD at 17:23 EDT , I reviewed the CT images and the report which I agree with. Until she is able to follow-up, will treat empirically with Proctosol/Proctofoam HC, no leukocytosis or suggestion of acute infectious etiology. Management Discussion w/another healthcare provider: Mining Engineer (christiano surgery) Discharge Plan Triage Chief Complaint: Other, Pain/Inj ED Midlevel Provider: Chao Horta ED Provider: Corneilo Rose Dx/Rx/DC Orders Clinical Impression: Anal or rectal pain, Inflammation of the rectum Instructions: Anatomy of the Digestive System, Taking a Sitz Bath Prescriptions: New docusate sodium [Colace] 100 mg capsule 100 mg PO BID Qty: 60 0RF Proctofoam HC 1-1 % foam 1 applic MT DAILY Qty: 10 0RF dicyclomine 20 mg tablet 20 mg PO TID Qty: 30 0RF No Action omeprazole 10 mg capsule,delayed release(DR/EC) 10 mg PO DAILY escitalopram oxalate [Lexapro] 10 mg tablet 10 mg PO DAILY ibuprofen 600 mg tablet 600 mg PO Q8H PRN cetirizine 10 mg tablet 10 mg PO DAILY PRN cyclobenzaprine 10 mg tablet 10 mg PO TID PRN (Reason: muscle spasm) meloxicam 15 mg tablet 15 mg PO DAILY Qty: 30 0RF Rx Instructions: Stop all other NSAIDS Stand Alone Forms: ED Work / School Excuse Primary Care Provider: Radha Martinez NP Referrals: Gamal Roth MD [Med Staff - Active Staff] - Radha Martinez NP, H[employer]AGG[employer] HAND[employer]ER-C [Primary Care Provider] - Activity Restrictions/Additional Instructions: Please take the Colace, is important that you keep your stools soft. Use the Proctofoam with applicator as directed. Use the Bentyl as needed for belly cramping. You need to follow-up outpatient. The surgeon recommend sitz bath twice a day with Epsom salts. I did put this in your discharge instructions. Return for any worsening symptoms. Print Language: Irish Disposition Disposition: Home, Self Care Discharge Date/Time: 05/30/24 18:08
[2024-05-30 15:58] LABS: Absolute Lymphocyte Count 2.15 X10^3/uL (0.83-4.51); Absolute Neutrophil Count 4.7 X10^3/uL (2.0-7.7); Basophil# 0.07 X10^3/uL; Basophil% 0.9 % (0-1); Eosinophil# 0.18 X10^3/uL; Eosinophils% 2.3 % (0-5); Hematocrit 41.1 % (37-47); Lymphocyte # 2.15 X10^3/ul (0.83-4.51); Lymphocyte % 28.1 % (19-41); Mean Corp Hgb Conc 34.1 g/dL (32-36); Mean Corpuscular Hgb 29.2 pg (27.0-32.0); Mean Corpuscular Volume 85.8 fL (81-99); Monocyte# 0.52 X10^3/uL; Monocyte% 6.8 % (0-10); NRBC Flagged by Analyzer 0 % (0-5); Neutrophil # 4.72 X10^3/uL (2.7-7.7); Neutrophil % 61.6 % (47-70); Platelet Count 141 K/mm3 (150-450); RBC Distribution Width SD 40.1 fl (35.1-43.9); Red Blood Count 4.79 M/mm3 (4.2-5.4); White Blood Count 7.7 K/mm3 (4.4-11.0)
[2024-05-30 16:13] VITALS: BP 127/73; PULSE 55; RESP 16; O2SAT 99
[2024-05-30 16:15] LABS: ALB/GLOB Ratio 1.1 RATIO (0.9-2.4); AST(SGOT) 16 U/L (15-37); Alanine Aminotransfer ALT/SGPT 26 U/L (13-56); Albumin, Serum 3.4 g/dL (3.2-5.0); Alkaline Phosphatase 59 U/L (45-117); Anion Gap 3 (5-15); BUN 11 mg/dL (7-18); BUN/Creat Ratio 13.6 RATIO (10-20); Calcium,Total 9.1 mg/dL (8.5-10.1); Chloride 109 mmol/L (98-107); Creatinine, Serum 0.81 mg/dL (0.55-1.02); EST Glomerular Filtration Rate 84 mL/min (>60); Est Glom Filt Rate - Afr Amer 101 mL/min (>60); Estimated Creatinine Clearance 136.97 ml/min; Globulin 3.1 g/dL (2.2-4.2); Glucose 85 mg/dL (74-106); Lipase 37 U/L (13-75); Potassium 4.3 mmol/L (3.5-5.1); Protein, Total 6.5 g/dL (6.4-8.2); Sodium Level 140 mmol/L (136-145)
== END 2024-05-30 18:08 | disposition home or self-care (01) ==
PROVIDERS: Nurse Practitioner; Emergency Provider Emergency Medicine; PCP Nurse Practitioner Family; Visit Provider Emergency Medicine
DX: K62.89 Other specified diseases of anus and rectum (principal); F17.210 Nicotine dependence, cigarettes, uncomplicated
CPT/HCPCS: 74177; 80053; 82274; 83690; 85025; 96361; 96374; 99282; J7030; Q9967; A4216

== ENCOUNTER 2024-07-31 09:22 | Day surgery (SDC) | payer MEDICAID, SELFPAY ==
[2024-07-31] VITALS (8 sets, daily range): BP systolic 113–150; BP diastolic 79–97; PULSE 56–76; RESP 16–18; TEMP 36.2–36.5; O2SAT 95–99; BMI 37.2
[2024-07-31] MEDS: Lactated Ringers 1,000 ML 15 ML IV (09:45)
--- NOTE | 2024-07-31 09:49 | PRE.ANES_ITS ---
ASA Classification* ASA Classification ASA Classification: 2 Assessment & Plan Anesthesia* Anesthesia Assessment Anesthesia Assessment: Discussed sedation and/or anesthesia options, risks, benefits, and alternatives with patient/parents/legal guardian/POA. Questions invited. The patient/parents/legal guardian/POA seems to understand and agrees to proceed with anesthesia plan. Reviewed the physical assessment, medical history, allergy history and patient home medications list prior to surgery/procedure/anesthetic and documented any changes. Performed airway and anesthesia risk assessments. Anesthesia Type Anesthesia Type: MAC History Source History Obtained from:: Patient and Chart Anesthesia Focused Assessment* Temperature: 97.2 F Pulse Rate: 76 Blood Pressure: 113/79 Respiratory Rate: 16 Pulse Ox: 96 Oxygen Delivery Method: Room Air Airway Assessment Mouth opens: >3 cm Mallampati Score: III Teeth Condition: Missing (Patient is edentulous on upper jaw. She is missing some molars on the lower.) Neck Range of motion (ROM): Full ROM Pertinent Findings EKG Pertinent Findings:: September 05, 2023. Normal sinus rhythm Focused Labs Anesthesia Preop lab: CBC WBC 7.7 K/mm3 (4.4-11.0) 05/30/24 15:50 RBC 4.79 M/mm3 (4.2-5.4) 05/30/24 15:50 Hgb 14.0 g/dL (12.0-15.0) 05/30/24 15:50 Hct 41.1 % (37-47) 05/30/24 15:50 Plt Count 141 K/mm3 (150-450) L 05/30/24 15:50 CHEMISTRY Potassium 4.3 mmol/L (3.5-5.1) 05/30/24 15:50 Sodium 140 mmol/L (136-145) 05/30/24 15:50 BUN 11 mg/dL (7-18) 05/30/24 15:50 Creatinine 0.81 mg/dL (0.55-1.02) 05/30/24 15:50 Glucose 85 mg/dL (74-106) 05/30/24 15:50 COAG PT 14.0 SECONDS (11.9-14.4) 12/13/12 05:45 Pre-Assessment Diagnosis/Proposed Procedure Planned Operative Procedure(s): CSCOPE Anesthesia History Anesthesia History - 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 When Was Last Pacemaker Check QUESTION #4 FULL TEXT: You/Your Family Experience fever (hyperthermia) with Anesthesia Last Oral Intake Last Oral intake: Last Oral Intake NPO since 06:00 07/31/24 09:38 Meds taken in AM with sips of water? Meds patient instructed to bowel prep 07/31/24 09:38 take am of surgery Any additional information?: Yes NPO since: 06:30 (Patient finished prep at 6:30 AM) PONV PONV - multiple wire sawyer: PONV - multiple wire sawyer Female Yes 07/25/24 13:56 HX of Motion Sickness No 07/25/24 13:56 HX of N/V After Surgery No 07/25/24 13:56 Non-Smoker No 07/25/24 13:56 Duration of Surgery greater No 07/25/24 13:56 than 60 minutes Number of Risk Factors 1 07/25/24 13:56 PONV Score Low Risk 07/25/24 13:56 Height & Weight Height & Weight: Anesthesia: Height & Weight Height 5 ft 11 in 07/31/24 09:38 Weight: 121.109 kg 07/31/24 09:38 Body Mass Index (BMI) 37.2 07/31/24 09:38 Respiratory Assessment Respiratory Assessment - multiple wire sawyer: Respiratory Tract Infection Hx - multiple wire sawyer Hx Respiratory Tract Infection No 07/25/24 13:56 STOP Sleep Apnea STOP Sleep Apnea - multiple wire sawyer: STOP Sleep Apnea - multiple wire sawyer Hx Hypertension Yes: NO MEDS FOR MANY YRS 07/25/24 13:56 Hx Sleep Apnea No 07/25/24 13:56 CPAP BIPAP Do you snore loudly (louder No 07/25/24 13:56 than talking or can be heard Do you often feel tired/ Yes 07/25/24 13:56 fatigued/ sleepy during daytime? Has anyone observed you stop No 07/25/24 13:56 breathing during sleep? STOP Results Positive 07/25/24 13:56 QUESTION #5 FULL TEXT : Do you snore loudly (louder than talking or can be heard through closed doors)? 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 Specify any problems Hx of Preganancy in last 3 No 07/25/24 13:56 Months Nurse Filling Out Transfusion DSCHRIBER 07/25/24 13:56 & Questions: Date: 07/25/24 07/25/24 13:56 Time: 13:58 07/25/24 13:56 Patient unable to answer at this time (ie. confused, unrespo /Reproduction History /Reproductive History - multiple wire sawyer: /Reproductive Hx- multiple wire sawyer Hx Now No 07/25/24 13:56 Gestational Age (in weeks): EDC: Hx Hx Para Hx Section SAB No 07/25/24 13:56 Active Medications Active Medications: Current Medications Generic Name Dose Route Start Last Admin Trade Name Freq PRN Reason Stop Dose Admin Lactated Ringer's 1,000 mls @ 15 mls/hr 07/31/24 09:30 07/31/24 09:45 IV 15 mls/hr .Q48H NEHEMIAS Administration PFSH Medical History Wears glasses Marijuana use Low iron Back pain Injury of back History of IBS Gastric reflux Smoker Shortness of breath on exertion Leg cramps Hypertension Anxiety Depression Home Medications ?Medication ?Instructions ?Recorded ?Last Taken ?Type cetirizine 10 mg tablet 10 mg PO DAILY PRN allergy symptoms 04/28/23 Unknown History escitalopram oxalate 10 mg tablet 20 mg PO QHS 04/28/23 Unknown History (Lexapro) omeprazole 10 mg capsule,delayed 20 mg PO QHS 04/28/23 Unknown History release docusate sodium 100 mg capsule 100 mg PO BID #60 caps 05/30/24 Unknown Rx (Colace) hydrocortisone 1 %-pramoxine 1 % 1 applic DE DAILY #10 grams 05/30/24 Unknown Rx rectal foam (Proctofoam HC) Allergy/AdvReac Type Severity Reaction Status Date / Time No Known Allergies Allergy Verified 07/31/24 09:37 Surgical History Hx of oral surgery History of History of cholecystectomy Social History Smoking Status: Current every day smoker tobacco type: cigarettes Review of Systems (Anesthesia) ROS Narrative System reviewed and no additional complaints, except as documented.
--- NOTE | 2024-07-31 10:30 | COLBX_PTH ---
PATIENT: LISETTE WHITAKER LOC: [facility] U#:[id number] AGE/SX: 38/F ROOM: RE07/31/[address]: Dr. Gamal Roth MD : 1985 BED: DIS: 07/31/2024 SPEC #: [id number] RECD: 07/31/24 14:05 STATUS: ARIC LILIA #: [id number] MICHEL: 07/31/24 10:[address]: Gamal Roth DEPT: SURGICAL PATHOLOGY RECD BY: Nereida Medina ENTERED: 08/01/24 08:11 SP TYPE: COLON BX OT DR: Radha Martinez, PARKER-C Tissues: A - Ascending colon B - Descending colon C - Sigmoid colon biopsy Procedures: Surgery Specimen Level IV HEADER OPERATION: Colonoscopy with polypectomy PRE-OP DIAGNOSIS: Rectal pain, hematochezia, abdominal pain TISSUE SUBMITTED: A- Ascending colon polyp, B- Descending colon polyp, C- Recto-sigmoid biopsy MICROSCOPIC DIAGNOSIS A. Ascending colon polyp, polypectomy: Tubular adenoma. B. Descending colon polyp, polypectomy: Tubular adenoma. C. Recto-sigmoid colon, biopsy: Fragments of colonic mucosa with superficial erosion, congestion and hemorrhage. Imtiaz 08/02/2024 MICROSCOPIC DESCRIPTION Slides are reviewed. GROSS DESCRIPTION A. Received in fixative is one container labeled with the patient's name and designated Ascending colon polyp. The specimen consists of two irregular fragments of light yanez soft tissue that in aggregate measure 0.4 x 0.3 x 0.1 cm. The specimen is totally submitted in one cassette. B. Received in fixative is one container labeled with the patient's name and designated Descending colon polyp. The specimen consists of one irregular fragment of light yanez soft tissue that measure 0.5 x 0.4 x 0.1 cm. The specimen is totally submitted in one cassette. C. Received in fixative is one container labeled with the patient's name and designated Recto-sigmoid biopsy. The specimen consists of multiple irregular fragments of light yanez soft tissue that in aggregate measure 0.6 x 0.2 x 0.1 cm. The specimen is totally submitted in one cassette. 08/01/2024 TC:1 CPT:77294o2
--- NOTE | 2024-07-31 11:07 | HP.PCM_ITS ---
History and Physical Date of Admission: 07/31/24 Date of Service: 06/24/24 MR#: [id number] Acct: [id number] Name: LISETTE WHITAKER Rep #: [id number] : 1985 Provider: Dr. Gamal Roth MD Age/Sex: 38/F Location: [facility] Status: Signed Intake Vital Signs 05/30/2414:14 06/24/2409:11 Height 5 ft 11 in 5 ft 11 in Weight: 276 lb BMI 38.5 BP 122/80 H Blood Pressure Location Rt brachial Position Sitting Respiration 17 Pulse 52 L Pulse Source Monitor Temp 96.3 F L Temp Source Temporal Pulse Oximetry (%) 95 Oxygen Delivery Method room air Intake Visit Reasons: [facility] FU, COLONOSCOPY Chief Complaint: [facility] fu, colonoscopy Is patient in pain?: Yes Allergies No Known Allergies Allergy (Verified 06/24/24 09:13) Medications ?Medication ?Instructions ?Recorded ?Confirmed ?Type cetirizine 10 mg tablet 10 mg PO DAILY PRN 04/28/23 06/24/24 History cyclobenzaprine 10 mg tablet 10 mg PO TID PRN muscle spasm 04/28/23 06/24/24 History escitalopram oxalate 10 mg tablet 10 mg PO DAILY 04/28/23 06/24/24 History (Lexapro) ibuprofen 600 mg tablet 600 mg PO Q8H PRN 04/28/23 06/24/24 History omeprazole 10 mg capsule,delayed 10 mg PO DAILY 04/28/23 06/24/24 History release docusate sodium 100 mg capsule 100 mg PO BID #60 caps 05/30/24 06/24/24 Rx (Colace) hydrocortisone 1 %-pramoxine 1 % 1 applic AK DAILY #10 grams 05/30/24 06/24/24 Rx rectal foam (Proctofoam HC) PFSH Medical History Anxiety Depression Surgical History History of cholecystectomy Social History Smoking Status: Current every day smoker tobacco type: cigarettes HPI HPI HPI: Patient is a 38 female who presents for need to schedule diagnostic colonoscopy secondary to a 2-1/2-week history of anorectal pain. She describes this as feeling like someone taking a needle and repeatedly poking that area. She also describes a masslike feeling. She is initially evaluated at the [facility] ency department for this complaint on 05/31/2024. CT imaging of the abdomen pelvis showed nonspecific thickening of the rectosigmoid colon. Optimistically, patient is able to report that she has not had any bleeding since 2 days after her ER visit. She had done sitz bath's as directed by me after my conversation with the emergency medicine but has not done them for the past week given that both her pain in this region and the bleeding have subsided. Yet, despite this progress she notes that she has new symptoms of abdominal pain in her lower abdomen. She finds that this pain is localized more to the right than the left and she describes it as a twisting sensation. She acknowledges that she has had this pain previously, remotely. To this end she shares that she has always dealt with stomach issues. She suggest that previously she was diagnosed with IBS as a adolescent. She specifically states that she does not think it is gas. She denies associated symptoms of nausea or bloating. Patient has not had prior colonoscopy. They describe their bowel habits as alternating between constipation and diarrhea, however, she finds she experiences diarrhea more frequently of the 2. They have approximately 1 bowel movements per day and spend roughly 15-25 minutes on the toilet sometimes with significant straining. As above, they have not noticed recent bleeding or dark stools in the last 1 week. They do share a history of hemorrhoids that occurred only in the phase of her pregnancies which occurred in 2009 and 2012. They deny any new diets. Patient has no family history of colon cancer or GI malignancies. She also denies any awareness of ulcerative colitis or Crohn's. Lastly she denies any awareness of diverticulitis in her family. The patient's weight is up and down. The patient is not prescribed anticoagulants/blood thinners. Relevant prior abdominal surgical history includes: Cholecystectomy and 2 C- sections Patient does have a significant history of GERD/heartburn, however, she confirms this is well-controlled with her use of omeprazole and estimates her breakthrough symptoms to only occur 1-2 times per month when taking this m edication. ROS General General: Yes fatigue; No weight change, appetite, colon cancer, breast cancer or weakness HEENT HEENT: Yes difficulty swallowing; No eye injury, eye surgery, swollen glands or hoarseness Endo Endocrine: No thyroid disease, diabetes mellitus, thyroid cancer, Hair loss, heat intolerance or cold intolerance Skin Skin: No rash or changing moles Musc Musculoskeletal: Yes back problems and arthritis; No rheumatoid arthritis, gout or joint pain Cardio Cardiovascular: No murmur, pacemaker, heart disease, atrial fibrillation, high blood pressure, heart attack, heart stent, palpitations, shortness of breat with exertion or chest pain Psych Psychiatric: Yes depression and anxiety; No hearing voices Resp Respiratory: No shortness of breath, No sleep apnea, No cough, No COPD, No asthma, No emphysema and No wheezing Gastro Gastrointestinal: Yes abdominal pain, No nausea or vomiting, Yes diarrhea, Yes constipation, Yes blood in stool, Yes acid reflux, Yes hemorrhoids, No ulcers, No gallbladder problem and No black,tarry stools Royal Hematologic: No blood thinners, No blood disorders, No bleeding, No anemia and No blood clots Neuro Neurologic: No system reviewed and no additional complaints, except as documented, No as per HPI, No abnormal gait, No abnormal hearing, No abnormal m ovements, No abnormal speech, No behavioral changes, No burning sensations, No confusion, No convulsions, No disequilibrium, No dizziness, No localized weakness, No frequent falls, No headache(s), No lack of coordination, No loss of vision, No memory loss, No numbness, No other visual disturbances, No radicular pain, No restless legs, No sensory deficit, No syncope, No tingling, No tremor(s), No weakness and No other Exam Const General: cooperative and lethargic (Patient shares she has been up all night with her son in the emergency dept) Orientation: alert, awake and oriented x3 Resp Effort & Inspection: normal respiratory effort GI Other: Obese, well-healed scars, no visible hernia, nondistended, soft, nontender to palpation Assessment and Plan Assessment and Plan (1) Rectal pain: Status: Acute Comment: Patient is a 38-year-old female who presents, initially, for concerns around a history of rectal pain and rectal bleeding for the better part of the last month. However, during our history today both of these issues seem to be improved/resolved after initiation of some conservative measures including sitz bath's. Still, patient believes something is going on though because she is experiencing lower abdominal pain?predominantly on the right. For workup of her former complaint CT imaging of the abdomen pelvis was obtained that was read by radiology is concerning for nonspecific thickening of the rectosigmoid colon. Thus, although I am encouraged by the apparent resolution of her initial symptoms I do believe that with this imaging finding and her ongoing GI symptoms she would benefit from proceeding for a diagnostic colonoscopy. Before proceeding, however, I want to try to exclude any underlying colitis that may increase her procedural risk with insufflation. We will have her go for stool studies. She may simply be suffering from hemorrhoid disease though and at the time of her colonoscopy I will plan to consent her for possible hemorrhoid banding. Plan: 1. Stool studies 2. Plan will be to complete colonoscopy on first mutually agreeable date under local MAC. Pre-procedure prep discussed and paper instructions provided. Patient is also made aware that she will need to have a shuttle bus driver with her the day of the procedure. (2) Hematochezia: Status: Acute Comment: Apparently resolved, however, patient confesses a history of hemorrhoids. Will look to assess for the presence of internal hemorrhoids on her planned colonoscopy as well as any explanation (proctitis,...) for the apparent thickening of the rectosigmoid colon is noted on CT. Plan: Stool studies and colonoscopy as above (3) Abdominal pain: Status: Acute Comment: Nonspecific abdominal pain associated with recent rectal pain and hematochezia. Differential would include infectious colitis versus inflammatory bowel disease versus other Plan: Stool studies and colonoscopy as above Orders: Orders ENTERIC PATHOGEN PANEL STOOL 06/24/24 Dr. Gamal Roth MD K59.00 - Constipation, unspecified, R10.9 - Unspecified abdominal pain, R19.7 - Diarrhea, unspecified Colonoscopy 07/31/24 Lisette PETERSON PA-C I have examined the patient the following changes are noted: Patient denies same intensity of abdominal pain with which she presented to our consultation visit. She also denies any recurrence of her bleeding. She does confirm that she completed prep for today's procedure and that her output is now clear yellow character. Patient and her significant other deny any further questions we will proceed to endoscopy suite for planned colonoscopy as follow-up of some perianal pain and rectosigmoid changes seen on CT imaging end of May.
--- NOTE | 2024-07-31 11:59 | OP.COLON_ITS ---
Patient Name: Shaye Whiting Procedure Date: 07/31/2024 11:08 AM Date of : 1985 Age: 38 Procedure: Colonoscopy Indications: Lower abdominal pain, Hematochezia, Abnormal CT of the GI tract Providers: Gamal Roth MD Referring MD: Radha Martinez Medicines: See the Anesthesia note for documentation of the administered medications Patient Profile: Last Colonoscopy: none. The patient's first colonoscopy is today. Complications: No immediate complications. Estimated blood loss: Minimal. Procedure: Pre-Anesthesia Assessment: - The heart rate, respiratory rate, oxygen saturations, blood pressure, adequacy of pulmonary ventilation, and response to care were monitored throughout the procedure. After I obtained informed consent, the scope was passed under direct vision. Throughout the procedure, the patient's blood pressure, pulse, and oxygen saturations were monitored continuously. The pediatric colonoscope was introduced through the anus and advanced to the cecum, identified by the appendiceal orifice, ileocecal valve and palpation. The colonoscopy was somewhat difficult due to significant looping. Successful completion of the procedure was aided by changing the patient to a supine position and using manual pressure. The quality of the bowel preparation was adequate to identify polyps greater than 5 mm in size. Scope In: 11:17:50 AM Scope Withdrawal Time 0 hours 18 minutes 55 seconds Scope Out: 11:50:19 AM Total Procedure Duration Time 0 hours 32 minutes 29 seconds Findings: Skin tags were found on perianal exam. A 5 mm, non-bleeding polyp was found in the ascending colon. The polyp was semi-pedunculated. The polyp was removed with a cold snare. Resection and retrieval were complete. Estimated blood loss was minimal. A 5 mm polyp was found in the mid descending colon. The polyp was pedunculated. The polyp was removed with a hot snare. Resection and retrieval were complete using a suction (via the working channel). Estimated blood loss was minimal. A segmental area of mildly erythematous mucosa was found in the recto-sigmoid colon. Biopsies were taken with a cold forceps for histology. Estimated blood loss was minimal. No additional abnormalities were found on retroflexion. Impression: - Perianal skin tags found on perianal exam. - One 5 mm, non-bleeding polyp in the ascending colon, removed with a cold snare. Resected and retrieved. - One 5 mm polyp in the mid descending colon, removed with a hot snare. Resected and retrieved. - Erythematous mucosa in the recto-sigmoid colon. Biopsied. Recommendation: - Discharge patient to home (via wheelchair). - Resume previous diet today. - No aspirin, ibuprofen, naproxen, or other non-steroidal anti-inflammatory drugs for 2 days after biopsy. - Await pathology results. - Repeat colonoscopy date to be determined after pending pathology results are reviewed for surveillance based on pathology results. - Telephone my office for pathology results in 1 week. Procedure Code(s): --- Professional --- 84245, Colonoscopy, flexible; with removal of tumor(s), polyp(s), or other lesion(s) by snare technique 18921, 59, Colonoscopy, flexible; with biopsy, single or multiple Diagnosis Code(s): --- Professional --- D12.2, Benign neoplasm of ascending colon D12.4, Benign neoplasm of descending colon K63.89, Other specified diseases of intestine K64.4, Residual hemorrhoidal skin tags R10.30, Lower abdominal pain, unspecified K92.1, Melena (includes Hematochezia) R93.3, Abnormal findings on diagnostic imaging of other parts of digestive tract CPT copyright 2021 [employer]. All rights reserved. The codes documented in this report are preliminary and upon seafood preparer review may be revised to meet current compliance requirements. Gamal Roth MD 07/31/2024 11:59:24 AM This report has been signed electronically. Number of Addenda: 0 Note Initiated On: 07/31/2024 11:08 AM
--- NOTE | 2024-07-31 11:59 | OP.CCLET_ITS ---
07/31/2024 Radha Martinez Re : Colonoscopy procedure for Shaye Whiting Dear Juan This procedure was performed on Wednesday, July 31, 2024. My impressions and recommendations are as follows: Impressions : - Perianal skin tags found on perianal exam. - One 5 mm, non-bleeding polyp in the ascending colon, removed with a cold snare. Resected and retrieved. - One 5 mm polyp in the mid descending colon, removed with a hot snare. Resected and retrieved. - Erythematous mucosa in the recto-sigmoid colon. Biopsied. Recommendations : - Discharge patient to home (via wheelchair). - Resume previous diet today. - No aspirin, ibuprofen, naproxen, or other non-steroidal anti-inflammatory drugs for 2 days after biopsy. - Await pathology results. - Repeat colonoscopy date to be determined after pending pathology results are reviewed for surveillance based on pathology results. - Telephone my office for pathology results in 1 week. My findings are described in the full procedure note, which is enclosed. If I can be of further assistance, please feel free to contact me at Doctor phone number(s): , Work: . Sincerely, Gamal Roth MD 07/31/2024 11:59:24 AM This report has been signed electronically.
--- NOTE | 2024-07-31 11:59 | PCM.POST.ANE ---
Anesthesia: Postop Eval I Current Vital Signs Temperature: 97.7 F Pulse Rate: 71 Blood Pressure: 114/87 Respiratory Rate: 16 Pulse Ox: 95 Oxygen Delivery Method: Room Air Assessment Airway patent: Yes Spontaneous unlabored respirations: Yes Mental status: Asleep nausea: No Vomiting: No Anesthesia Complication: No Fluid Hydration Crystalloid volume administer (ml): 800 Total IV fluid infused: 800 Progress Note Anesthesia document: Postop Eval 1 completed: Yes
--- NOTE | 2024-07-31 16:30 | PCM.POSTANE2 ---
Anesthesia Postop Eval I Sum Postop Eval Completion status Anesthesia document: Postop Eval 1 completed: Yes Anesthesia Postop Eval I Summary Anesthesia Postop Eval I Summary: Anesthesia Postop Eval I: Assessment Summary Airway patent Yes 07/31/24 12:00 [email or web address] Spontaneous unlabored Yes 07/31/24 12:00 [email or web address] respirations Mental status Asleep 07/31/24 12:00 [email or web address] nausea No 07/31/24 12:00 [email or web address] Vomiting No 07/31/24 12:00 [email or web address] Anesthesia Postop Eval I: Fluid Summary Crystalloid volume administer 800 07/31/24 12:00 [email or web address] (ml) Colloids volume administered ( ml) Blood Product volume administered (ml) Total IV fluid infused 800 07/31/24 12:00 [email or web address] Anesthesia Postop Eval I: Summary Notes Anesthesia Complication No 07/31/24 12:00 [email or web address] Anesthesia Complication Comment: Post-operative progress note Anesthesia: Postop Eval II Evaluation Mental status: Awake and Calm Pain Level: 0 nausea: No Vomiting: No Complications Anesthesia Complication: No
== END 2024-07-31 13:03 | disposition home or self-care (01) ==
LOC: EN 09:26 → AC 09:27
PROVIDERS: PCP Nurse Practitioner Family; Referring Provider Nurse Practitioner Family; Visit Provider Surgery
PROC: 0DJD8ZZ Inspection of Lower Intestinal Tract, Via Natural or Artificial Opening Endoscopic (ICD-10-PCS; CPT 45378; principal; 2024-07-31 10:25)
DX: D12.2 Benign neoplasm of ascending colon (principal); D12.4 Benign neoplasm of descending colon; K63.89 Other specified diseases of intestine; K64.4 Residual hemorrhoidal skin tags; K62.89 Other specified diseases of anus and rectum; K92.1 Melena; R93.3 Abnormal findings on diagnostic imaging of other parts of digestive tract; K21.9 Gastro-esophageal reflux disease without esophagitis; F17.210 Nicotine dependence, cigarettes, uncomplicated; Z79.899 Other long term (current) drug therapy
CPT/HCPCS: 45380; 45385; 88305; J7120; J2405

== ENCOUNTER 2024-09-24 09:56 | Emergency (ER) | payer BC, MEDICAID, SELFPAY ==
[2024-09-24 09:57] VITALS: BP 133/79; PULSE 61; RESP 18; TEMP 36.6; O2SAT 97; BMI 36.2
--- NOTE | 2024-09-24 10:07 | EX.ED.UPPERE ---
HPI History of Present Illness HPI Narrative: Patient presents with left hand and wrist injury that occurred yesterday. Patient states she was cutting tree branches yesterday and one of the branches fell and hit her on the ulnar aspect of her left wrist and hand. Patient states her pain is worse with movement. Patient describes her pain as throbbing. Patient states that it is better with rest. Patient admits to some tingling over the ulnar aspect of her left wrist. Patient denies any weakness. Patient denies any other injuries. Chief Complaint: Upper Extremity Injury Informant: patient Occured/Mechanism Mechanism/Context: Yes blunt trauma Onset/Context/Timing Onset: Yesterday Context: Sudden Onset Timing: Continuous Quality of Pain: Throbbing Location: Ulnar aspect left wrist, hand, and distal forearm Worsened by: Movement Relieved by: Nothing Associated Symptoms Associated Symptoms: Positive for Parasthesia; Negative for Weakness or Loss of Funtion [facility] Medical History Wears glasses Marijuana use Low iron Back pain Injury of back History of IBS Gastric reflux Smoker Shortness of breath on exertion Leg cramps Hypertension Anxiety Depression Home Medications ?Medication ?Instructions ?Recorded ?Last Taken ?Type cetirizine 10 mg tablet 10 mg PO DAILY PRN allergy symptoms 04/28/23 Unknown History escitalopram oxalate 10 mg tablet 20 mg PO QHS 04/28/23 Unknown History (Lexapro) omeprazole 10 mg capsule,delayed 20 mg PO QHS 04/28/23 Unknown History release docusate sodium 100 mg capsule 100 mg PO BID #60 caps 05/30/24 Unknown Rx (Colace) hydrocortisone 1 %-pramoxine 1 % 1 applic MS DAILY #10 grams 05/30/24 Unknown Rx rectal foam (Proctofoam HC) Allergy/AdvReac Type Severity Reaction Status Date / Time No Known Allergies Allergy Verified 07/31/24 09:37 Surgical History Hx of oral surgery History of History of cholecystectomy Social History Smoking Status: Current every day smoker tobacco type: cigarettes ROS ROS ED Constitutional Constitutional ED: Denies chills or fever(s) Eyes Eyes: Denies blurry vision or change in vision ENT ENT ED: Denies rhinorrhea or sore throat Cardiovascular Cardiovascular: Denies chest pain or palpitations Respiratory/Chest Respiratory/Chest: Denies cough or dyspnea Gastrointestinal Gastrointestinal: Denies nausea or vomiting Genitourinary Genitourinary ED: Denies dysuria or hematuria Musculoskeletal Musculoskeletal: Reports back pain; Denies neck pain Integumentary Denies abscess or rash Neurologic Neurologic: Denies headache(s) or weakness Allergic/Immunologic Allergic/Immunologic ED: Denies mouth swelling or urticaria EXAM Physical Exam Const Vital Signs: 09/24/24 09:57 Temperature 97.8 F Temperature Source Oral Pulse Rate 61 Respiratory Rate 18 Blood Pressure 133/79 H Blood Pressure Mean 97 Pulse Ox 97 Oxygen Delivery Method Room Air Positive well nourished and well developed General Appearance ED: well developed and NAD HEENT Reports moist mucous membranes Neck full ROM and supple Extremity Extremity Narrative: There is tenderness with mild edema over the ulnar aspect of the left hand, wrist, and distal forearm. There is no tenderness over the fifth digit. Range of motion was slightly limited in all motions of the left wrist secondary to bleeding. There is no tenderness over the anatomic snuffbox. There is no bony crepitance or step-off. There is no obvious deformity noted. Radial pulses are equal bilaterally. Sensation was intact to light touch in the radial, median, and ulnar areas. Strength is 5/5 in the radial, median, and ulnar areas. Neuro oriented x3, CN's II-XII intact bilaterally, moves all extremities, no focal motor deficits and no sensory deficits noted Sensorium / Orientation: alert Motor Exam: strength 5/5 throughout Psych mental status grossly normal MDM MDM MDM Narrative Medical decision making narrative: Differential diagnosis includes contusion, sprain, and fracture. X-rays of the wrist and forearm will be obtained to assess for fracture. Radiography Diagnostic Testing: X-rays of the left wrist were obtained. There are 3 views. On my independent interpretation, there is no acute fracture or dislocation. Radiologist also interpreted the x-rays and agrees. X-rays of the left forearm were obtained. There are 2 views. On my independent interpretation, there is no acute fracture or dislocation. There is no soft tissue swelling. Radiologist also interpreted the x-rays and agrees. Treatment and Re-Evaluation Narrative: Smoking cessation was discussed. Patient was advised of her findings. Patient was given a Velcro wrist splint. Patient was instructed to ice and elevate the left wrist. Patient was instructed take Tylenol or ibuprofen as needed for pain. Patient was instructed to follow-up with her primary care physician in 5 to 7 days. Patient understood and was agreeable with the plan. All questions were answered. Discharge Plan Triage Chief Complaint: Upper Extremity Injury ED Provider: Ish Jamison Dx/Rx/DC Orders Clinical Impression: Contusion of left wrist, initial encounter Instructions: ED Contusion, Upper Extremity Prescriptions: No Action omeprazole 10 mg capsule,delayed release(DR/EC) 20 mg PO QHS escitalopram oxalate [Lexapro] 10 mg tablet 20 mg PO QHS cetirizine 10 mg tablet 10 mg PO DAILY PRN (Reason: allergy symptoms) docusate sodium [Colace] 100 mg capsule 100 mg PO BID Qty: 60 0RF Proctofoam HC 1-1 % foam 1 applic MS DAILY Qty: 10 0RF Primary Care Provider: Radha Martinez NP Referrals: Radha Martinez NP, ELECTRICAL TECHNICIAN INSTRUCTOR-C [Primary Care Provider] - 5-7 Days Print Language: Cameroonian Disposition Disposition: Home, Self Care
--- NOTE | 2024-09-24 10:35 | RAD_ITS ---
STUDY: X-RAY - LEFT RADIUS AND ULNA REASON FOR EXAM: Female, 38 years old. Injury/Pain TECHNIQUE: 2 view(s) of the forearm. COMPARISON: None. FINDINGS: There is no demonstrated soft tissue swelling. Normal visualized radius. Normal visualized ulna. RAD/Forearm 2 Views IMPRESSION: Normal x-ray examination of the radius and ulna. Electronically Signed: Edgar Bain MD at 11:13 [facility] ,
--- NOTE | 2024-09-24 10:37 | RAD_ITS ---
STUDY: X-RAY - LEFT WRIST REASON FOR EXAM: Female, 38 years old. Injury/Pain TECHNIQUE: 3 view(s) of the wrist were obtained. COMPARISON: None. FINDINGS: Normal visualized distal radius and ulna. Normal radiocarpal articulation. Normal distal radioulnar articulation. Normal carpal bones. Normal carpal articulations. There is degenerative arthrosis of the carpometacarpal articulation of the thumb. Normal second through fifth carpometacarpal articulations. Normal visualized metacarpal bones. The soft tissue structures are unremarkable. RAD/Wrist min 3 Views IMPRESSION: No acute fracture or dislocation. Electronically Signed: Edgar Bain MD at 11:14 EST ,
== END 2024-09-24 12:27 | disposition home or self-care (01) ==
PROVIDERS: Emergency Provider Emergency Medicine; PCP Nurse Practitioner Family; Visit Provider Emergency Medicine
DX: S60.212A Contusion of left wrist, initial encounter (principal); W20.8XXA Other cause of strike by thrown, projected or falling object, initial encounter; Y93.H9 Activity, other involving exterior property and land maintenance, building and construction; F17.210 Nicotine dependence, cigarettes, uncomplicated
CPT/HCPCS: 73090; 73110; 99283

== ENCOUNTER 2025-02-13 16:33 | Emergency (ER) | payer MEDICAID, SELFPAY ==
[2025-02-13 16:34] VITALS: BP 130/94; PULSE 79; RESP 18; TEMP 36.2; O2SAT 96
--- NOTE | 2025-02-13 17:01 | ED.VIS.LOWEX ---
HPI History of Present Illness Chief Complaint: Lower Extremity Injury Informant: patient Narrative Narrative: Pain inside left ankle for last 8 days. States he was sitting style got up felt pain. Has been limping since then. No direct falls. No paresthesias. Tylenol Motrin been taken however last use over 24 hours. No history of gastric ulcers or kidney injury. Denies any chronic medical history. Does have a PCP. Has not contact her PCP. Prior similar symptoms: No PFSH PFSH Medical History Wears glasses Marijuana use Low iron Back pain Injury of back History of IBS Gastric reflux Smoker Shortness of breath on exertion Leg cramps Hypertension Anxiety Depression Home Medications ?Medication ?Instructions ?Recorded ?Last Taken ?Type cetirizine 10 mg tablet 10 mg PO DAILY PRN allergy symptoms 04/28/23 Unknown History escitalopram oxalate 10 mg tablet 20 mg PO QHS 04/28/23 Unknown History (Lexapro) omeprazole 10 mg capsule,delayed 20 mg PO QHS 04/28/23 Unknown History release docusate sodium 100 mg capsule 100 mg PO BID #60 caps 05/30/24 Unknown Rx (Colace) hydrocortisone 1 %-pramoxine 1 % 1 applic AL DAILY #10 grams 05/30/24 Unknown Rx rectal foam (Proctofoam HC) Allergy/AdvReac Type Severity Reaction Status Date / Time No Known Allergies Allergy Verified 02/13/25 16:34 Surgical History Hx of oral surgery History of History of cholecystectomy Social History Smoking Status: Current every day smoker tobacco type: cigarettes ROS ROS ED Constitutional Constitutional ED: Denies fever(s) Cardiovascular Cardiovascular: Denies chest pain Respiratory/Chest Respiratory/Chest: Denies cough Musculoskeletal Musculoskeletal: Reports extremity pain; Denies back pain or neck pain EXAM Physical Exam Const Vital Signs: 02/13/25 16:34 Temperature 97.1 F L Temperature Source Temporal Pulse Rate 79 Respiratory Rate 18 Blood Pressure 130/94 H Blood Pressure Mean 106 Pulse Ox 96 Oxygen Delivery Method Room Air Positive well nourished and well developed General Appearance ED: well developed and NAD HEENT Reports moist mucous membranes normocephalic and atraumatic Eyes General Eye ED: Yes normal appearance of both eyes Neck full ROM Chest Wall Chest: Negative for tenderness Resp normal respiratory effort and normal air movement Effort and Inspection: symmetric chest movement; Negative for respiratory distress Cardio regular rate, regular rhythm and no murmurs Peripheral Pulses: pulses 2+ throughout GI normal to inspection, nondistended, normoactive bowel sounds and non-tender Palpation: Negative for guarding or rebound tenderness present Extremity Extremity Narrative: Left lower extremity: No knee tenderness. There is tender palpation deltoid ligament of the ankle. No lateral tenderness no redness no swelling. No foot tenderness. General Extremety ED: Yes tenderness; Negative for edema General Extremity: Negative for edema Neuro oriented x3 and no sensory deficits noted Sensorium / Orientation: awake and alert Skin no rashes or lesions noted and no wounds MDM MDM MDM Narrative Medical decision making narrative: Interventions / MDM: Differential diagnosis: Ankle sprain Diagnosis considered but do not suspect: Fracture however x-ray negative. No clinical septic joint. My EKG interpretation: N/A Imaging independently reviewed and interpreted by myself: Left ankle 3 views: No acute process mild soft tissue swelling also read radiology. External documents reviewed: N/A Test considered but not ordered:N/A ED course: Patient pain to the deltoid ligament no clinical redness swelling for concern for septic joint. X-ray ordered. Toradol for symptom control. X-ray negative. Ankle stirrup crutches provided. Discussed continuing NSAIDs. Outpatient follow-up with her doctor. All questions were answered. Re-evaluation: stable Disposition discussed with patient/family/significant other: Patient Case discussed with consulting clinician: N/A This note was generated with [employer] dictation software. It may contain incorrect words, spelling, and punctuation that were not noted in checking the note before signing. Radiography Diagnostic Testing: Clinical Impression(s) from Imaging Studies Ankle X-Ray 02/13/25 17:30 IMPRESSION: Soft tissue swelling. No definite displaced fracture is identified. An occult fracture can not entirely be ruled out. Given presence of soft tissue swelling, if there is no improving the short-term MRI may be obtained. Reading Location: [id number] Discharge Plan Triage Chief Complaint: Lower Extremity Injury ED Provider: Tom Mojica Dx/Rx/DC Orders Clinical Impression: Sprain of deltoid ligament of left ankle, initial encounter, Ankle pain, left Instructions: ED Ankle Sprain (Adult) Prescriptions: No Action omeprazole 10 mg capsule,delayed release(DR/EC) 20 mg PO QHS escitalopram oxalate [Lexapro] 10 mg tablet 20 mg PO QHS cetirizine 10 mg tablet 10 mg PO DAILY PRN (Reason: allergy symptoms) docusate sodium [Colace] 100 mg capsule 100 mg PO BID Qty: 60 0RF Proctofoam HC 1-1 % foam 1 applic AL DAILY Qty: 10 0RF Stand Alone Forms: ED Work / School Excuse Primary Care Provider: Radha Martinez NP Referrals: Radha Martinez NP, [employer] [Primary Care Provider] - 1 Week if not improving Activity Restrictions/Additional Instructions: X-ray negative. Use stirrup and crutches. Continue Motrin up to 600 g every 6 hours for next 2 days as as needed. Ice and elevate. Follow-up with your doctor in 1 week if symptoms or not improving. Print Language: Greenlandic Disposition Disposition: Home, Self Care Discharge Date/Time: 02/13/25 18:39
--- NOTE | 2025-02-13 17:30 | RAD_ITS ---
PROCEDURE: ANKLE MIN 3 VIEWS 02/13/2025 REASON FOR EXAM: INJURY TECHNIQUE: 3 views of the left ankle COMPARISON: None. FINDINGS: There is mild soft tissue swelling overlying the left ankle. Etiology to be determined. The ankle mortise is however intact. There is no definitive fracture or dislocation present. The ankle mortise is intact. RAD/Ankle min 3 Views IMPRESSION: Soft tissue swelling. No definite displaced fracture is identified. An occult fracture can not entirely be ruled out. Given presence of soft tissue swelling, if there is no improving the short-term MRI m ay be obtained. Reading Location: [id number]
[2025-02-13] MEDS: Ketorolac 30 MG/ML Syringe IM (17:43)
[2025-02-13 17:45] VITALS: BMI 38.7
== END 2025-02-13 18:39 | disposition home or self-care (01) ==
PROVIDERS: Emergency Provider Emergency Medicine; PCP Nurse Practitioner Family; Visit Provider Emergency Medicine
DX: S93.422A Sprain of deltoid ligament of left ankle, initial encounter (principal); X58.XXXA Exposure to other specified factors, initial encounter; F17.210 Nicotine dependence, cigarettes, uncomplicated
CPT/HCPCS: 73610; 96372; 99284